=== PATIENT | male | born 1980 | race Caucasian/White ===

== ENCOUNTER 2017-09-13 13:47 | Emergency (ER) | payer BC ==
[2017-09-13 17:29] LABS: BASO % 0.5 % (0.0-1.0); EOS # 0.2 10^3/uL (0.0-0.50); HEMATOCRIT 48.4 % (42.0-52.0); HEMOGLOBIN 16.5 g/dl (13.5-17.5); IMMATURE GRANULOCYTE % 0.5 % (0-3.0); LYMPH # 2.3 10^3/uL (1.5-4.5); LYMPH % 27.7 % (24.0-44.0); MEAN CORPUSCULAR HEMOGLOBIN 29.3 pg (27.0-33.0); MEAN CORPUSCULAR HGB CONC 34.1 g/dl (32.0-36.5); MEAN CORPUSCULAR VOLUME 85.8 fl (80.0-96.0); MONO # 0.5 10^3/uL (0.0-0.8); MONO % 6.5 % (0.0-5.0); NEUTROPHILS # 5.2 10^3/uL (1.8-7.7); NEUTROPHILS % 62.8 % (36.0-66.0); PLATELET COUNT, AUTOMATED 296 10^3/uL (150-450); RED BLOOD COUNT 5.64 10^6/uL (4.30-6.10); RED CELL DISTRIBUTION WIDTH 12.2 % (11.5-14.5); WHITE BLOOD COUNT 8.2 10^3/uL (4.0-10.0)
[2017-09-13 17:55] LABS: ALBUMIN 4.3 GM/DL (3.2-5.2); ALKALINE PHOSPHATASE 103 U/L (45-117); ALT/SGPT 46 U/L (12-78); ANION GAP 4 MEQ/L (8-16); AST/SGOT 21 U/L (7-37); BILIRUBIN,TOTAL 0.3 MG/DL (0.2-1.0); BLOOD UREA NITROGEN 17 MG/DL (7-18); CALCIUM LEVEL 8.9 MG/DL (8.5-10.1); CARBON DIOXIDE LEVEL 29 MEQ/L (21-32); CHLORIDE LEVEL 107 MEQ/L (98-107); GLOMERULAR FILTRATION RATE > 60.0 (>60); GLUCOSE, FASTING 96 MG/DL (70-100); POTASSIUM SERUM 4.6 MEQ/L (3.5-5.1); SODIUM LEVEL 140 MEQ/L (136-145); TOTAL PROTEIN 8.2 GM/DL (6.4-8.2)
[2017-09-13 18:17] LABS: APPEARANCE, URINE CLEAR (CLEAR); BILIRUBIN, URINE AUTO NEGATIVE (NEGATIVE); BLOOD, URINE BLOOD NEGATIVE (NEGATIVE); COLOR, URINE YELLOW (YELLOW); GLUCOSE, URINE (UA) AUTO NEGATIVE (NEGATIVE); KETONE, URINE AUTO NEGATIVE (NEGATIVE); LEUKOCYTE ESTERASE, URINE AUTO NEGATIVE (NEGATIVE); NITRITE, URINE AUTO NEGATIVE (NEGATIVE); PROTEIN, URINE AUTO NEGATIVE (NEGATIVE); RBC, URINE AUTO 1 /HPF (0-3); SPECIFIC GRAVITY URINE AUTO 1.023 (1.002-1.035); UROBILINOGEN, URINE AUTO 0.2 mg/dL (0.0-2.0); WBC, URINE AUTO 0 /HPF (0-3)
== END 2017-09-13 18:56 | disposition home or self-care (01) ==
LOC: M ED 13:47
DX: R10.31 Right lower quadrant pain (principal); N50.811 Right testicular pain; M54.5 Low back pain; I10 Essential (primary) hypertension; R00.2 Palpitations; Z88.8 Allergy status to other drugs, medicaments and biological substances
CPT/HCPCS: 74018

== ENCOUNTER → 2019-05-05 | Outpatient (CLI) | payer OTHER ==
[2019-05-05 11:04] LABS: ALBUMIN 3.8 GM/DL (3.2-5.2); ALT/SGPT 43 U/L (12-78); BILIRUBIN,TOTAL 0.7 MG/DL (0.2-1.0); BLOOD UREA NITROGEN 16 MG/DL (7-18); CALCIUM LEVEL 9.1 MG/DL (8.5-10.1); CARBON DIOXIDE LEVEL 31 MEQ/L (21-32); CHLORIDE LEVEL 101 MEQ/L (98-107); CHOLESTEROL LEVEL 244 MG/DL (<200); CHOLESTEROL RISK RATIO 6.256 (<5); CREATININE FOR GFR 0.91 MG/DL (0.70-1.30); GLOMERULAR FILTRATION RATE > 60.0 (>60); GLUCOSE, FASTING 93 MG/DL (70-100); HDL CHOLESTEROL 39 MG/DL (>40); NON-HDL-C 205 MG/DL; POTASSIUM SERUM 4.2 MEQ/L (3.5-5.1); SODIUM LEVEL 140 MEQ/L (136-145); TOTAL PROTEIN 7.4 GM/DL (6.4-8.2); TRIGLYCERIDES LEVEL 560 MG/DL (<150)
== END ==
LOC: M WUC 08:48
PROVIDERS: ATTEND Family Medicine
DX: E78.5 Hyperlipidemia, unspecified (principal); I10 Essential (primary) hypertension

== ENCOUNTER 2019-06-30 04:36 | Emergency (ER) | payer OTHER ==
[~2019-06-30] VITALS: Ht 175.3 cm; Wt 84.1 kg
[2019-06-30 05:24] LABS: ABG pH (ARTERIAL) 7.422 UNITS (7.350-7.450)
[2019-06-30 05:25] LABS: ABG BASE EXCESS -0.4 (-2.0-2.0); ABG HCO3 23.7 MEQ/L (22.0-26.0); ABG O2 SATURATION 99.3 % (95.0-99.0); ABG PARTIAL PRESSURE CO2 37.2 mmHg (35.0-45.0); ABG PARTIAL PRESSURE O2 180.1 mmHg (75.0-100.0); ABG STANDARD HCO3 24.2 MEQ/L (22.0-26.0); ABG TOTAL CO2 24.8 MEQ/L (22.0-29.0)
[2019-06-30 05:37] LABS: BASO % 0.6 % (0.0-1.0); EOS # 0.2 10^3/uL (0.0-0.5); EOS % 2.6 % (0.0-3.0); HEMATOCRIT 44.9 % (42.0-52.0); HEMOGLOBIN 14.9 g/dl (13.5-17.5); LYMPH # 2.8 10^3/uL (1.5-5.0); LYMPH % 38.3 % (24.0-44.0); MEAN CORPUSCULAR HEMOGLOBIN 28.3 pg (27.0-33.0); MEAN CORPUSCULAR HGB CONC 33.2 g/dl (32.0-36.5); MEAN CORPUSCULAR VOLUME 85.4 fl (80.0-96.0); MONO # 0.5 10^3/uL (0.0-0.8); MONO % 6.9 % (0.0-5.0); NEUTROPHILS # 3.7 10^3/uL (1.5-8.5); NEUTROPHILS % 51.3 % (36.0-66.0); PLATELET COUNT, AUTOMATED 273 10^3/uL (150-450); RED BLOOD COUNT 5.26 10^6/uL (4.30-6.10); WHITE BLOOD COUNT 7.2 10^3/uL (4.0-10.0)
[2019-06-30 05:48] LABS: INR 0.97; PROTHROMBIN TIME 12.6 SECONDS (11.8-14.0)
[2019-06-30 05:49] LABS: PARTIAL THROMBOPLASTIN TIME 34.6 SECONDS (25.0-38.4)
[2019-06-30 06:38] LABS: BLOOD UREA NITROGEN 23 MG/DL (7-18); CALCIUM LEVEL 9.2 MG/DL (8.5-10.1); CARBON DIOXIDE LEVEL 26 MEQ/L (21-32); CHLORIDE LEVEL 104 MEQ/L (98-107); CK-MB VALUE MASS 1.2 NG/ML (<3.6); CPK CREATINE PHOSPHOKINASE 120 U/L (39-308); CREATININE FOR GFR 0.92 MG/DL (0.70-1.30); GLOMERULAR FILTRATION RATE > 60.0 (>60); GLUCOSE, FASTING 89 MG/DL (70-100); POTASSIUM SERUM 3.9 MEQ/L (3.5-5.1); SODIUM LEVEL 138 MEQ/L (136-145); TROPONIN I < 0.02 NG/ML (< 0.10)
[2019-06-30 06:56] VITALS: BP 138/78
--- NOTE | 2019-06-30 07:22 | REP ---
Clinical: Chest pain and palpitations . Comparison: 10/24/2010 . Technique: PA and lateral. Findings: The mediastinum and cardiac silhouette are normal. The lung oliver are clear and without acute consolidation, effusion, or pneumothorax. The skeletal structures are intact and normal. Impression: 1. No acute cardiopulmonary process. Electronically Signed by Cade Rodriguez MD 06/30/2019 07:13 A
--- NOTE | 2019-06-30 19:45 | ECGEPIP ---
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
== END 2019-06-30 06:58 | disposition home or self-care (01) ==
LOC: M ED 04:36
DX: R00.2 Palpitations (principal); R94.31 Abnormal electrocardiogram [ECG] [EKG]; I10 Essential (primary) hypertension; Z88.5 Allergy status to narcotic agent; Z88.6 Allergy status to analgesic agent

== ENCOUNTER 2020-02-15 09:04 | Emergency (ER) | payer OTHER ==
[~2020-02-15] VITALS: Ht 175.3 cm; Wt 89.3 kg
[2020-02-15 09:53] LABS: BASO # 0.1 10^3/uL (0.0-0.2); EOS # 0.2 10^3/uL (0.0-0.5); EOS % 4.4 % (0.0-3.0); HEMATOCRIT 46.7 % (42.0-52.0); HEMOGLOBIN 15.8 g/dl (13.5-17.5); LYMPH # 2.1 10^3/uL (1.5-5.0); LYMPH % 42.3 % (24.0-44.0); MEAN CORPUSCULAR HEMOGLOBIN 28.7 pg (27.0-33.0); MEAN CORPUSCULAR HGB CONC 33.8 g/dl (32.0-36.5); MEAN CORPUSCULAR VOLUME 84.9 fl (80.0-96.0); MONO # 0.3 10^3/uL (0.0-0.8); MONO % 6.9 % (0.0-5.0); NEUTROPHILS # 2.2 10^3/uL (1.5-8.5); PLATELET COUNT, AUTOMATED 254 10^3/uL (150-450)
[2020-02-15 10:33] LABS: BLOOD UREA NITROGEN 18 MG/DL (7-18); CALCIUM LEVEL 9.1 MG/DL (8.5-10.1); CARBON DIOXIDE LEVEL 28 MEQ/L (21-32); CHLORIDE LEVEL 106 MEQ/L (98-107); CK-MB VALUE MASS < 1.0 NG/ML (<3.6); CPK CREATINE PHOSPHOKINASE 75 U/L (39-308); CREATININE FOR GFR 0.95 MG/DL (0.70-1.30); GLOMERULAR FILTRATION RATE > 60.0 (>60); GLUCOSE, FASTING 95 MG/DL (70-100); MAGNESIUM LEVEL 2.2 MG/DL (1.8-2.4); MB/CK RELATIVE INDEX 1.33 (< OR =4); POTASSIUM SERUM 4.4 MEQ/L (3.5-5.1); SODIUM LEVEL 141 MEQ/L (136-145); TROPONIN I < 0.02 NG/ML (< 0.10)
[2020-02-15 11:29] VITALS: BP 134/86
--- NOTE | 2020-03-04 16:32 | ECGEPIP ---
SINUS BRADYCARDIA WITH SINUS ARRHYTHMIA SEE SCANNED DOWNTIME REPORT MTDD
--- NOTE | 2020-03-12 15:03 | REP ---
PORTABLE CHEST X-RAY CLINICAL: Chest pain. COMPARISON: 06/30/2009. FINDINGS: Mediastinum and cardiac silhouette normal. Lung oliver clear. No acute consolidation, effusion, or pneumothorax. Skeletal structures are intact. IMPRESSION: No acute cardiopulmonary process. MTDD
== END 2020-02-15 11:30 | disposition home or self-care (01) ==
LOC: M ED 09:04
DX: I49.1 Atrial premature depolarization (principal); I10 Essential (primary) hypertension; Z88.6 Allergy status to analgesic agent; Z88.8 Allergy status to other drugs, medicaments and biological substances

== ENCOUNTER 2020-05-15 06:06 | Emergency (ER) | payer OTHER ==
[~2020-05-15] VITALS: Ht 175.3 cm; Wt 90.7 kg
[2020-05-15] MEDS ORDERED: PEPT262T2 PO (06:18)
[2020-05-15] MEDS ORDERED: NS 1,000 ML IV ONE (07:00)
[2020-05-15 07:04] LABS: BASO # 0.1 10^3/uL (0.0-0.2); BASO % 0.9 % (0.0-1.0); EOS # 0.2 10^3/uL (0.0-0.5); EOS % 3.2 % (0.0-3.0); HEMATOCRIT 47.2 % (42.0-52.0); HEMOGLOBIN 15.9 g/dl (13.5-17.5); LYMPH # 2.2 10^3/uL (1.5-5.0); LYMPH % 40.9 % (24.0-44.0); MEAN CORPUSCULAR HEMOGLOBIN 28.9 pg (27.0-33.0); MEAN CORPUSCULAR HGB CONC 33.7 g/dl (32.0-36.5); MEAN CORPUSCULAR VOLUME 85.8 fl (80.0-96.0); MONO # 0.4 10^3/uL (0.0-0.8); NEUTROPHILS # 2.5 10^3/uL (1.5-8.5); NEUTROPHILS % 46.8 % (36.0-66.0); PLATELET COUNT, AUTOMATED 274 10^3/uL (150-450); WHITE BLOOD COUNT 5.3 10^3/uL (4.0-10.0)
[2020-05-15 07:16] LABS: ALBUMIN 3.7 GM/DL (3.2-5.2); ALT/SGPT 43 U/L (12-78); BILIRUBIN,DIRECT < 0.1 MG/DL (0.0-0.2); BILIRUBIN,TOTAL 0.5 MG/DL (0.2-1.0); BLOOD UREA NITROGEN 17 MG/DL (7-18); CALCIUM LEVEL 9.4 MG/DL (8.5-10.1); CARBON DIOXIDE LEVEL 26 MEQ/L (21-32); CHLORIDE LEVEL 106 MEQ/L (98-107); CK-MB VALUE MASS < 1.0 NG/ML (<3.6); CPK CREATINE PHOSPHOKINASE 140 U/L (39-308); CREATININE FOR GFR 0.89 MG/DL (0.70-1.30); FREE T4 0.97 NG/DL (0.76-1.46); GLOMERULAR FILTRATION RATE > 60.0 (>60); GLUCOSE, FASTING 93 MG/DL (70-100); INR 0.87; LIPASE 156 U/L (73-393); MB/CK RELATIVE INDEX 0.71 (< OR =4); POTASSIUM SERUM 4.6 MEQ/L (3.5-5.1); SODIUM LEVEL 137 MEQ/L (136-145); TOTAL PROTEIN 7.3 GM/DL (6.4-8.2); TROPONIN I < 0.02 NG/ML (< 0.10)
[2020-05-15 07:17] LABS: PARTIAL THROMBOPLASTIN TIME 33.9 SECONDS (24.2-38.5)
--- NOTE | 2020-05-15 07:28 | REP ---
INDICATION: CHEST PAIN COMPARISON: 06/20/2019 TECHNIQUE: PA and lateral. FINDINGS: The mediastinum and cardiac silhouette are normal. The lung oliver are clear and without acute consolidation, effusion, or pneumothorax. The skeletal structures are intact and normal. IMPRESSION: No acute cardiopulmonary process. <Electronically signed by Cade Rodriguez > 05/15/20 0789
--- NOTE | 2020-05-15 07:46 | ECGEPIP ---
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
[2020-05-15 07:51] LABS: ERYTHROCYTE SEDIMENTATION RATE 1 mm/hr (0-15)
[2020-05-15] MEDS ORDERED: holter monitor (07:58)
[2020-05-15 09:25] VITALS: BP 150/102
== END 2020-05-15 09:27 | disposition home or self-care (01) ==
LOC: M ED 06:06
DX: R07.9 Chest pain, unspecified (principal); R00.2 Palpitations; R94.31 Abnormal electrocardiogram [ECG] [EKG]; I10 Essential (primary) hypertension; K21.9 Gastro-esophageal reflux disease without esophagitis; F17.220 Nicotine dependence, chewing tobacco, uncomplicated; Z88.8 Allergy status to other drugs, medicaments and biological substances

== ENCOUNTER 2020-11-29 03:33 | Emergency (ER) | payer OTHER ==
[~2020-11-29] VITALS: Ht 175.3 cm; Wt 88.5 kg
[~2020-11-29 03:33] MED LIST: PEPT262T2 PO; holter monitor
[2020-11-29] MEDS ORDERED: TUMS500C PO (03:43)
[2020-11-29 04:34] LABS: BASO % 0.7 % (0.0-1.0); EOS # 0.2 10^3/uL (0.0-0.5); EOS % 3.2 % (0.0-3.0); HEMATOCRIT 45.3 % (42.0-52.0); HEMOGLOBIN 15.4 g/dl (13.5-17.5); LYMPH # 2.4 10^3/uL (1.5-5.0); LYMPH % 43.1 % (24.0-44.0); MEAN CORPUSCULAR HEMOGLOBIN 28.9 pg (27.0-33.0); MONO # 0.4 10^3/uL (0.0-0.8); MONO % 7.5 % (2.0-8.0); NEUTROPHILS # 2.5 10^3/uL (1.5-8.5); NEUTROPHILS % 45.3 % (36.0-66.0); PLATELET COUNT, AUTOMATED 264 10^3/uL (150-450); RED BLOOD COUNT 5.33 10^6/uL (4.30-6.10); WHITE BLOOD COUNT 5.6 10^3/uL (4.0-10.0)
[2020-11-29 05:17] LABS: BLOOD UREA NITROGEN 17 MG/DL (7-18); CALCIUM LEVEL 9.2 MG/DL (8.5-10.1); CARBON DIOXIDE LEVEL 25 MEQ/L (21-32); CHLORIDE LEVEL 106 MEQ/L (98-107); CK-MB VALUE MASS < 1.0 NG/ML (<3.6); CPK CREATINE PHOSPHOKINASE 187 U/L (39-308); CREATININE FOR GFR 0.85 MG/DL (0.70-1.30); GLOMERULAR FILTRATION RATE > 60.0 (>60); GLUCOSE, FASTING 93 MG/DL (70-100); MB/CK RELATIVE INDEX 0.53 (< OR =4); POTASSIUM SERUM 4.6 MEQ/L (3.5-5.1); SODIUM LEVEL 139 MEQ/L (136-145); TROPONIN I < 0.02 NG/ML (< 0.10)
--- NOTE | 2020-11-29 05:20 | REPVR ---
PROCEDURE INFORMATION: Exam: XR Chest Exam date and time: 11/29/2020 4:13 AM Age: 40 years old Clinical indication: Pain; Other: Not specified; Additional info: Chest pain TECHNIQUE: Imaging protocol: XR of the chest. Views: 1 view. COMPARISON: CR Chest, 2 view PA, Lat 05/15/2020 7:12 AM FINDINGS: Lungs: Unremarkable. No consolidation. Pleural spaces: Unremarkable. No pleural effusion. No pneumothorax. Heart/Mediastinum: Unremarkable. No cardiomegaly. Bones/joints: Unremarkable. IMPRESSION: No acute findings. Electronically signed by: Warner Neal On 11/29/2020 05:20:00 AM
[2020-11-29] MEDS ORDERED: GI COCKTAIL 50ML BTL(HYOSCYAMINE/MAALOX/LIDOCAINE VISCOUS)(1:3:1) PO ONE (06:15)
[2020-11-29 07:02] LABS: ALBUMIN 3.8 GM/DL (3.2-5.2); ALT/SGPT 37 U/L (12-78); BILIRUBIN,DIRECT < 0.1 MG/DL (0.0-0.2); BILIRUBIN,TOTAL 0.5 MG/DL (0.2-1.0); LIPASE 107 U/L (73-393); TOTAL PROTEIN 7.4 GM/DL (6.4-8.2)
[2020-11-29 07:28] VITALS: BP 112/65
--- NOTE | 2020-11-29 17:00 | ECGEPIP ---
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
== END 2020-11-29 07:30 | disposition home or self-care (01) ==
LOC: M ED 03:33
DX: K21.9 Gastro-esophageal reflux disease without esophagitis (principal); R00.1 Bradycardia, unspecified; M54.5 Low back pain; R51.9 Headache, unspecified; Z88.6 Allergy status to analgesic agent; Z79.899 Other long term (current) drug therapy

== ENCOUNTER → 2021-04-10 | Outpatient (REF) | payer OTHER ==
[~2021-04-10] MED LIST changes: +TUMS500C PO
== END ==
LOC: M WUC 17:52
PROVIDERS: ATTEND Physician Assistant
DX: L03.116 Cellulitis of left lower limb (principal)

== ENCOUNTER 2021-04-11 07:42 | Emergency (ER) | payer OTHER ==
[~2021-04-11] VITALS: Ht 175.3 cm; Wt 86.8 kg
[2021-04-11 07:43] VITALS: BP 165/96
--- OUTSIDE RECORDS SUMMARY | 2021-04-11 07:48 | CCD | Continuity of Care Document ---
Author Author Judd MICHELLE Organization Unknown Address [address] [place] [address] [place] [address] Phone [phone] Care Team Providers Care Compositor Apprentice Name Role Phone [facility] Problems Description No Information Available Social History Type Date Description Comments Sex Unknown ETOH Use Rarely consumes alcohol Tobacco Use Start: Unknown The patient has never vaped Tobacco Use Start: Unknown Patient has never smoked Smoking Status Reviewed: 04/10/21 Patient has never smoked Allergies and adverse reactions Active Allergies Criticality Reaction | Severity Comments Date Demerol Unable to assess criticality 04/10/2021 Medications Active Medications SIG Qnty Indications Ordering Provide r Date Cefadroxil 500mg Capsules 2 capsules by mouth every 12 hours for 7 days 28caps L03.116 Eugenio mazariegos JR., M.D. 04/10/2021 History Medications No Active Medications Unknown - 04/10/2021 Immunizations Description No Information Available Vital Signs Date Vital Result Comment 04/10/2021 10:19am BP Systolic 131 mmHg BP Diastolic 87 mmHg Heart Rate 73 /min Respiratory Rate 16 /min O2 % BldC Oximetry 96 % Body Temperature 98.0 F Weight 186.00 lb Height 69 inches 5'9" BMI (Body Mass Index) 27.5 kg/m2 Pain Level 6 Results Description No Information Available Procedures Date Code Description Status 04/10/2021 29244 Office/Outpatient New Low [facility] 30 -44 Minutes Completed Medical Devices Description No Information Available Encounters Type Date Location Provider Dx Diagnosis Office Visit 04/10/2021 8:40a Main Office Carley Abel L0 3.116 Cellulitis of left lower limb Assessments Date Code Description Provider 04/10/2021 L03.116 Cellulitis of left lower limb Carley Garcia Plan of Treatment 04/10/2021 - Haresh Abel.* L03.116 Cellulitis of left lower limb* New Medication:* Cefadroxil 500 mg - 2 capsules by mouth every 12 hours for 7 days * Comments:* Minimal amount of bloody, slightly purulent material expressed with deep palpation which was culturedWill cover with antibioticsMonitorCulture sent, will call if changes to antibiotics are neededRecommend follow up with PCP to discuss other areas that look cystic and chronic. May want general surgery referral if he wants them removedI&D not performed today as this is not fluctuant and quite firm. More cellulitis than abscess at this point. Functional Status Description No Information Available Mental Status Description No Information Available Referrals Description No Information Available
--- OUTSIDE RECORDS SUMMARY | 2021-04-11 07:48 | CCD ---
Author Author [facility] Organization [facility] Address Unknown Phone Unavailable Care Team Providers Care Admin Prog Coord Name Role Phone Charkolebojerson, A Nichelle RPA C Unavailable Unavailable Charlebois, A Nichelle RPA C Unavailable Unavailable Charlebois, A Nichelle RPA C Unavailable Unavailable Charlebois, A Nichelle RPA C Unavailable Unavailable Charlebois, A Nichelle RPA C Unavailable Unavailable Charlebois, A Nichelle RPA C Unavailable Unavailable Charlebois, A Nichelle RPA C Unavailable Unavailable Charlebois, A Nichelle RPA C Unavailable Unavailable Charlebois, A Nichelle RPA C Unavailable Unavailable Charlebois, A Nichelle RPA C Unavailable Unavailable Charlebois, A Nichelle RPA C Unavailable Unavailable Charlebois, A Nichelle RPA C Unavailable Unavailable Charlebois, A Nichelle RPA C Unavailable Unavailable Charlebois, A Nichelle RPA C Unavailable Unavailable Charlebois, A Nichelle RPA C Unavailable Unavailable Charlebois, A Nichelle RPA C Unavailable Unavailable Charlebois, A Nichelle RPA C Unavailable Unavailable Charlebois, A Nichelle RPA C Unavailable Unavailable Charlebois, A Nichelle RPA C Unavailable Unavailable Charlebois, A Nichelle RPA C Unavailable Unavailable Charlebois, A Nichelle RPA C Unavailable Unavailable Charlebois, A Nichelle RPA C Unavailable Unavailable Charlebois, A Nichelle RPA C Unavailable Unavailable Charlebois, A Nichelle RPA C Unavailable Unavailable Charlebois, A Nichelle RPA C Unavailable Unavailable Charlebois, A Nichelle RPA C Unavailable Unavailable Charlebois, A Nichelle RPA C Unavailable Unavailable Charlebois, A Nichelle RPA C Unavailable Unavailable Charlebois, A Nichelle RPA C Unavailable Unavailable Charlebois, A Nichelle RPA C Unavailable Unavailable Charlebois, A Nichelle RPA C Unavailable Unavailable Charlebois, A Nichelle RPA C Unavailable Unavailable Charlebois, A Nichelle RPA C Unavailable Unavailable Donte STOVER MD Unavailable Unavailable Donte STOVER MD Unavailable Unavailable Donte STOVER MD Unavailable Unavailable Donte STOVER MD Unavailable Unavailable Donte STOVER MD Unavailable Unavailable Donte STOVER MD Unavailable Unavailable Donte STOVER MD Unavailable Unavailable Donte STOVER MD Unavailable Unavailable Donte STOVER MD Unavailable Unavailable Donte STOVER MD Unavailable Unavailable Donte STOVER MD Unavailable Unavailable Donte STOVER MD Unavailable Unavailable Donte STOVER MD Unavailable Unavailable Donte STOVER MD Unavailable Unavailable Donte STOVER MD Unavailable Unavailable Donte STOVER MD Unavailable Unavailable Donte STOVER MD Unavailable Unavailable Donte STOVER MD Unavailable Unavailable Donte STOVER MD Unavailable Unavailable Donte STOVER MD Unavailable Unavailable Donte STOVER MD Unavailable Unavailable Donte STOVER MD Unavailable Unavailable Donte STOVER MD Unavailable Unavailable Donte STOVER MD Unavailable Unavailable Donte STOVER MD Unavailable Unavailable Donte STOVER MD Unavailable Unavailable Donte STOVER MD Unavailable Unavailable Donte STOVER MD Unavailable Unavailable Donte STOVER MD Unavailable Unavailable Donte STOVER MD Unavailable Unavailable Donte STOVER MD Unavailable Unavailable Donte STOVER MD Unavailable Unavailable Donte STOVER MD Unavailable Unavailable Donte STOVER MD Unavailable Unavailable Donte STOVER MD Unavailable Unavailable Donte STOVER MD Unavailable Unavailable Donte STOVER MD Unavailable Unavailable Donte STOVER MD Unavailable Unavailable Donte STOVER MD Unavailable Unavailable Donte STOVER MD Unavailable Unavailable Donte STOVER MD Unavailable Unavailable Donte STOVER MD Unavailable Unavailable Donte STOVER MD Unavailable Unavailable Donte STOVER MD Unavailable Unavailable Donte STOVER MD Unavailable Unavailable Donte STOVER MD Unavailable Unavailable Donte STOVER MD Unavailable Unavailable Donte STOVER MD Unavailable Unavailable Donte STOVER MD Unavailable Unavailable Donte STOVER MD Unavailable Unavailable Donte STOVER MD Unavailable Unavailable CK H DASH TANG Unavailable Unavailable CK H DASH TANG Unavailable Unavailable Donte STOVER MD Unavailable Unavailable CK H DASH MD Unavailable Unavailable CK H DASH MD Unavailable Unavailable Donte STOVER MD Unavailable Unavailable CK H DASH TANG Unavailable Unavailable Donte STOVER MD Unavailable Unavailable Donte STOVER MD Unavailable Unavailable CK H DASH MD Unavailable Unavailable CK H DASH MD Unavailable Unavailable CK H DASH MD Unavailable Unavailable CK H DASH MD Unavailable Unavailable Donte STOVER MD Unavailable Unavailable Donte STOVER MD Unavailable Unavailable Donte STOVER MD Unavailable Unavailable Donte STOVER MD Unavailable Unavailable Donte STOVER MD Unavailable Unavailable Donte STOVER MD Unavailable Unavailable Donte STOVER MD Unavailable Unavailable Donte STOVER MD Unavailable Unavailable Donte STOVER MD Unavailable Unavailable Donte STOVER MD Unavailable Unavailable Donte STOVER MD Unavailable Unavailable Donte STOVER MD Unavailable Unavailable MIGUEL ANGEL, CONCEPCION PA Unavailable Unavailable MIGUEL ANGEL, CONCEPCION PA Unavailable Unavailable MIGUEL ANGEL, CONCEPCION PA Unavailable Unavailable MIGUEL ANGEL, CONCEPCOIN PA Unavailable Unavailable MIGUEL ANGEL, CONCEPCION PA Unavailable Unavailable MIGUEL ANGEL, CONCEPCION PA Unavailable Unavailable MIGUEL AGNEL, CONCEPCION PA Unavailable Unavailable MIGUEL ANGEL, CONCEPCION PA Unavailable Unavailable MIGUEL ANGEL, CONCEPCION PA Unavailable Unavailable MIGUEL ANGEL, CONCEPCION PA Unavailable Unavailable MIGUEL ANGEL, CONCEPCION PA Unavailable Unavailable MIGUEL ANGEL, CONCEPCION PA Unavailable Unavailable MIGUEL ANGEL, CONCEPCION PA Unavailable Unavailable MIGUEL ANGEL, CONCEPCION PA Unavailable Unavailable MIGUEL ANGEL, CONCEPCION PA Unavailable Unavailable MIGUEL ANGEL, CONCEPCION PA Unavailable Unavailable MIGUEL ANGEL, CONCEPCION PA Unavailable Unavailable MIGUEL ANGEL, CONCEPCION PA Unavailable Unavailable MIGUEL ANGEL, CONCEPCION PA Unavailable Unavailable MIGUEL ANGEL, CONCEPCION PA Unavailable Unavailable MIGUEL ANGEL, CONCEPCION PA Unavailable Unavailable MIGUEL ANGEL, CONCEPCION PA Unavailable Unavailable MIGUEL ANGEL, CONCEPCION PA Unavailable Unavailable MIGUEL ANGEL, CONCEPCION PA Unavailable Unavailable MIGUEL ANGEL, CONCEPCION PA Unavailable Unavailable MIGUEL ANGEL, CONCEPCION PA Unavailable Unavailable MIGUEL ANGEL, CONCEPCION PA Unavailable Unavailable MIGUEL ANGEL, CONCEPCION PA Unavailable Unavailable MIGUEL ANGEL, CONCEPCION PA Unavailable Unavailable MIGUEL ANGEL, CONCEPCION PA Unavailable Unavailable MIGUEL ANGEL, CONCEPCION PA Unavailable Unavailable MIGUEL ANGEL, CONCEPCION PA Unavailable Unavailable MIGUEL ANGEL, CONCEPCION PA Unavailable Unavailable MIGUEL ANGEL, CONCEPCION PA Unavailable Unavailable MIGUEL ANGEL, CONCEPCION PA Unavailable Unavailable MIGUEL ANGEL, CONCEPCION PA Unavailable Unavailable [place], N Evaristo TIN TIE MACHINE OPERATOR AUTOMATIC Unavailable Unavailable [place], N Evaristo TIN TIE MACHINE OPERATOR AUTOMATIC Unavailable Unavailable [place], N Evaristo TIN TIE MACHINE OPERATOR AUTOMATIC Unavailable Unavailable [place], N Evaristo TIN TIE MACHINE OPERATOR AUTOMATIC Unavailable Unavailable [place], N Evaristo TIN TIE MACHINE OPERATOR AUTOMATIC Unavailable Unavailable [place], N Evaristo TIN TIE MACHINE OPERATOR AUTOMATIC Unavailable Unavailable [place], N Evaristo TIN TIE MACHINE OPERATOR AUTOMATIC Unavailable Unavailable [place], N Evaristo TIN TIE MACHINE OPERATOR AUTOMATIC Unavailable Unavailable [place], N Evaristo TIN TIE MACHINE OPERATOR AUTOMATIC Unavailable Unavailable [place], N Evaristo TIN TIE MACHINE OPERATOR AUTOMATIC Unavailable Unavailable [place], N Evaristo TIN TIE MACHINE OPERATOR AUTOMATIC Unavailable Unavailable [place], N Evaristo TIN TIE MACHINE OPERATOR AUTOMATIC Unavailable Unavailable [place], N Evaristo TIN TIE MACHINE OPERATOR AUTOMATIC Unavailable Unavailable [place], N Evaristo TIN TIE MACHINE OPERATOR AUTOMATIC Unavailable Unavailable [place], N Evaristo TIN TIE MACHINE OPERATOR AUTOMATIC Unavailable Unavailable [place], N Evaristo TIN TIE MACHINE OPERATOR AUTOMATIC Unavailable Unavailable [place], N Evaristo TIN TIE MACHINE OPERATOR AUTOMATIC Unavailable Unavailable [place], N Evaristo TIN TIE MACHINE OPERATOR AUTOMATIC Unavailable Unavailable [place], N Evaristo TIN TIE MACHINE OPERATOR AUTOMATIC Unavailable Unavailable [place], N Evaristo TIN TIE MACHINE OPERATOR AUTOMATIC Unavailable Unavailable [place], N Evaristo TIN TIE MACHINE OPERATOR AUTOMATIC Unavailable Unavailable [place], N Evaristo TIN TIE MACHINE OPERATOR AUTOMATIC Unavailable Unavailable [place], N Evaristo TIN TIE MACHINE OPERATOR AUTOMATIC Unavailable Unavailable [place], N Evaristo TIN TIE MACHINE OPERATOR AUTOMATIC Unavailable Unavailable [place], N Evaristo TIN TIE MACHINE OPERATOR AUTOMATIC Unavailable Unavailable [place], N Evaristo TIN TIE MACHINE OPERATOR AUTOMATIC Unavailable Unavailable [place], N Evaristo TIN TIE MACHINE OPERATOR AUTOMATIC Unavailable Unavailable [place], N Evaristo TIN TIE MACHINE OPERATOR AUTOMATIC Unavailable Unavailable [place], N Evaristo TIN TIE MACHINE OPERATOR AUTOMATIC Unavailable Unavailable [place], N Evaristo TIN TIE MACHINE OPERATOR AUTOMATIC Unavailable Unavailable [place], N Evaristo TIN TIE MACHINE OPERATOR AUTOMATIC Unavailable Unavailable [place], N Evaristo TIN TIE MACHINE OPERATOR AUTOMATIC Unavailable Unavailable [place], N Evaritso TIN TIE MACHINE OPERATOR AUTOMATIC Unavailable Unavailable Denice Gray MD Unavailable Unavailable Denice Gray MD Unavailable Unavailable Denice Gray MD Unavailable Unavailable Denice Gray MD Unavailable Unavailable Denice Gray MD Unavailable Unavailable Denice Gray MD Unavailable Unavailable Denice Gray MD Unavailable Unavailable Denice Gray MD Unavailable Unavailable Denice Gray MD Unavailable Unavailable Denice Gray MD Unavailable Unavailable Denice Gray MD Unavailable Unavailable Denice Gray MD Unavailable Unavailable Denice Gray MD Unavailable Unavailable Denice Gray MD Unavailable Unavailable Denice Gray MD Unavailable Unavailable SlezkaMikaelatech Unavailable Unavailable SlezkaSukhwinderjtech Unavailable Unavailable Slezka Vojtech Unavailable Unavailable SlezkaSukhwinderjtech Unavailable Unavailable SlezkaSukhwinderjtech Unavailable Unavailable SlezkaSukhwinderjtech Unavailable Unavailable SlezkaSukhwinderjtech Unavailable Unavailable SlezkaSukhwinderjtech Unavailable Unavailable SlezkaSukhwinderjtech Unavailable Unavailable SlezkaSukhwinderjtech Unavailable Unavailable SlezkaSukhwinderjtech Unavailable Unavailable SlezkaSukhwinderjtech Unavailable Unavailable SlezkaSukhwinderjtech Unavailable Unavailable SlezkaSukhwinderjtech Unavailable Unavailable SlezkaSukhwinderjtech Unavailable Unavailable SlezkaSukhwinderjtech Unavailable Unavailable SlezkaSukhwinderjtech Unavailable Unavailable SlezkaSukhwinderjtech Unavailable Unavailable SlezkaSukhwinderjtech Unavailable Unavailable SlezkaSukhwinderjtech Unavailable Unavailable SlezkaSukhwinderjtech Unavailable Unavailable SlezkaSukhwinderjtech Unavailable Unavailable SlezkaSukhwinderjtech Unavailable Unavailable SlezkaSukhwinderjtech Unavailable Unavailable SlezkaSukhwinderjtech Unavailable Unavailable SlezkaSukhwinderjtech Unavailable Unavailable SlezkaSukhwinderjtech Unavailable Unavailable SlezkaSukhwinderjtech Unavailable Unavailable SlezkaSukhwinderjtech Unavailable Unavailable SlezkaSukhwinderjtech Unavailable Unavailable SlezkaSukhwinderjtech Unavailable Unavailable SlezkaSukhwinderjtech Unavailable Unavailable SlezkaSukhwinderjtech Unavailable Unavailable SlezkaSukhwinderjtech Unavailable Unavailable SlezkaSukhwinderjtech Unavailable Unavailable SlezkaSukhwinderjtech Unavailable Unavailable SlezkaMikaelatech Unavailable Unavailable SlezkaSukhwinderjtech Unavailable Unavailable SlezkaSukhwinderjtech Unavailable Unavailable SlezkaSukhwinderjtech Unavailable Unavailable SlezkaSukhwinderjtech Unavailable Unavailable SlezkaSukhwinderjtech Unavailable Unavailable SlezkaSukhwinderjtech Unavailable Unavailable Re-disclosure Warning The records that you are about to access may contain information from federally-assisted alcohol or drug abuse programs. If such information is present, then the following federally mandated warning applies: This information has been disclosed to you from records protected by federal confidentiality rules (42 CFR part 2). The federal rules prohibit you from making any further disclosure of this information unless further disclosure is expressly permitted by the written consent of the person to whom it pertains or as otherwise permitted by 42 CFR part 2. A general authorization for the release of medical or other information is NOT sufficient for this purpose. The Federal rules restrict any use of the information to criminally investigate or prosecute any alcohol or drug abuse patient.The records that you are about to access may contain highly sensitive health information, the redisclosure of which is protected by Article 27-F of the [facility] Public Health law. If you continue you may have access to information: Regarding HIV / AIDS; Provided by facilities licensed or operated by the [facility] Office of Mental Health; or Provided by the [facility] Office for People With Developmental Disabilities. If such information is present, then the following [facility] mandated warning applies: This information has been disclosed to you from confidential records which are protected by state law. State law prohibits you from making any further disclosure of this information without the specific written consent of the person to whom it pertains, or as otherwise permitted by law. Any unauthorized further disclosure in violation of state law may result in a fine or senior care sentence or both. A general authorization for the release of medical or other information is NOT sufficient authorization for further disc losure. Encounters Encounter Providers Location Date Indications Data Source(s ) Outpatient Attender: CONCEPCION agosto 04/10/2021 08:40:00 AM EDT [facility] ([facility]) Outpatient Attender: Nichelle Parks/Danilo/Shantel lopez/Rigo 02/02/2021 02:00:00 PM EDT [facility] ([facility] [place]) Outpatient Attender: DASH STOVER MD [facility] 09:00:00 AM EDT [facility] Outpatient АННА-JAZZY 08/14/2020 01:40:42 PM EST [facility] Outpatient Referrer: Denice [facility]TRAM 07/20 03:47:32 PM EST [facility] Outpatient Attender: Evaristo Rider NP SJP.АННА-SJP.АННА 08/10/2020 12 :00:00 AM EST [facility] Outpatient Attender: DASH STOVER MD [facility] 04/2020 07:30:00 AM EST [facility] ([facility] Medications Medication Brand Name Start Date Product Form Dose Route Admi nistrative Instructions Pharmacy Instructions Status Indications Reaction Description Data Source(s) No Active Medications 04/10/2021 12:00:00 AM EDT completed [facility] ([facility]) Cefadroxil 500 MG Oral Capsule Cefadroxil 04/10/2021 12:00:00 AM EDT ORAL active [facility] ([facility]) Insurance Providers Payer name Policy type / Coverage type Policy ID Covered republican ID Covered republican's relationship to holden Policy Holden Plan Information [facility] [id number] SP [id number] [facility] COMM[facility] PLAN [facility] [id number] SP [id number] [place] 302/[id number] SP [id number] [place] 302/307 [id number] SP [id number] [employer] B [id number] S [id number] SELF PAY UNAVAILABLE UNAVAILA BLE ONE CALL CARE MANAGEMENT O [id number] S [id number] [facility] PLAN [facility] [id number] SP [id number] ESIS P [id number] S [id number] [employer] BCBS P [id number] S [id number] BCBS [place]IRE [facility] 303/803 P [id number] S [id number] BCBS O [id number] S [id number] ESIS CLAIMS WC [id number] S [id number] BLUE CROSS BLUE SHIELD -O/P [id number] 18 [id number] [facility] O [id number] S [id number] Problems, Conditions, and Diagnoses No Information Surgeries/Procedures Procedure Description Date Indications Data Source(s) OFFICE OUTPATIENT NEW 30 MINUTES 04/10/2021 12:00:00 A M EDT [facility] ([facility]) OFFICE OUTPATIENT NEW 45 MINUTES 02/02/2021 12:00:00 A M EDT [facility] ([facility], ) OFFICE OUTPATIENT VISIT 25 MINUTES 12/01/2020 12:00:00 AM EDT [facility] ([facility] POCT AMB EKG <td>POCT AMB EKG</td><td>Rou oliver</td><td>08/10/2020 12:00 PM EST</td><td> Palpitations</td><td> </td> 08/10/2020 05:00:00 PM EST Palpitations [facility] Palpitations Results ID Date Data Source [id number] 03/30/2021 12:00:00 AM EDT [facility] Name Value Range Interpretation Code Description Data Carey rce(s) Supporting Document(s) SARS coronavirus 2 RNA Not Detected [facility] This lab was ordered by [facility] and rep orted by [facility]. ID Date Data Source [id number] 12/01/2020 09:15:00 AM EDT [facility] ([facility] Name Value Range Interpretation Code Description Data Carey rce(s) Supporting Document(s) Cholesterol [Mass/volume] in Serum or Plasma 258 mg/dL 100 -199 Above high normal [facility] ([facility] Cholesterol in HDL [Mass/volume] in Serum or Plasma 37 mg/dL Below low normal [facility] ([facility] Triglyceride [Mass/volume] in Serum or Plasma 572 mg/dL 0- 149 Above upper panic limits [facility] ([facility] ) Comment: Laboratory test result [facility] ([facility] Laboratory test finding (navigational concept) 102 mg/dL 5-40 Above high normal [facility] ([facility] Laboratory test finding (navigational concept) 119 mg/dL 0-99 Above high normal [facility] ([facility] ID Date Data Source [id number] 12/01/2020 09:15:00 AM EDT [facility] ([facility] Name Value Range Interpretation Code Description Data Carey rce(s) Supporting Document(s) Glucose [Mass/volume] in Serum or Plasma 83 mg/dL 65-99 [facility] ([facility] BUN 14 mg/dL 6-20 [facility] ([facility] Creatinine [Mass/volume] in Serum or Plasma 0.91 mg/dL 0.76-1.27 [facility] ([facility] eGFR If NonAfricn Am 107 mL/min/1.73 [facility] ([facility] eGFR If Africn Am 123 mL/min/1.73 [facility] ([facility] currently reports eGFR in comp liance with the current recommendations of the National Kidney Foundation. [facility] will update reporting as new guidelines are published from the NKF-ASN Task force. Urea nitrogen/Creatinine [Mass Ratio] in Serum or Plasma 15 9 -20 [facility] ([facility] Sodium [Moles/volume] in Serum or Plasma 139 mmol/L 134-144 [facility] ([facility] Potassium [Moles/volume] in Serum or Plasma 4.5 mmol/L 3.5-5.2 [facility] ([facility] Chloride [Moles/volume] in Serum or Plasma 102 mmol/L 96-106 [facility] ([facility] Carbon dioxide, total [Moles/volume] in Serum or Plasma 23 mmol/L 20 -29 [facility] ([facility] Protein [Mass/volume] in Serum or Plasma 7.2 g/dL 6.0-8.5 [facility] ([facility] Calcium [Mass/volume] in Serum or Plasma 9.4 mg/dL 8.7-10.2 [facility] ([facility] Albumin [Mass/volume] in Serum or Plasma 4.5 g/dL 4.0-5.0 [facility] ([facility] Globulin [Mass/volume] in Serum by calculation 2.7 g/dL 1.5-4.5 [facility] ([facility] Albumin/Globulin [Mass Ratio] in Serum or Plasma 1.7 1.2-2.2 [facility] ([facility] Bilirubin.total [Mass/volume] in Serum or Plasma 0.3 mg/dL 0.0-1.2 [facility] ([facility] Alkaline phosphatase [Enzymatic activity/volume] in Serum or Plasma 87 IU/L 48-121 [facility] Alanine aminotransferase [Enzymatic activity/volume] in Seru m or Plasma 25 IU/L 0-44 [facility] Aspartate aminotransferase [Enzymatic activity/volume] in Serum or Plasma 18 IU/L 0-40 [facility] ([facility] ID Date Data Source [id number] 08/14/2020 01:32:45 PM EST [facility] Name Value Range Interpretation Code Description Data Carey rce(s) Supporting Document(s) &PDF [facility] [id number]/KZSpeGSXvd1VzWSdtLCy[id number] vci [file] ICAgICAgICAgICAgICAgICAgICAgICAgICAgICAgICAgICAgICAgICAgICAgICAgICAgICAgICAgICAg ICAgICAgICAgICAgICAgICAgICAgICANCiAgICAgICAgICAgICAgICAgICAgICAgICAgICAgICAgICAg ICAgICAgICAgICAgICAgICAgICAgICAgICAgICAgIC AgICAgICAgICAgICAgICAgICAgICAgICAgICAgICAgICANCiAgICAgICAgICAgICAgICAgICAgICAgIC AgICAgICAgICAgICAgICAgICAgICAgICAgICAgICAgICAgICAgICAgICAgICAgICAgICAgICAgICAgIC AgICAgICAgICAgICAgICANCiAgICAgICAgICAgICAg ICAgICAgICAgICAgICAgICAgICAgICAgICAgICAgICAgICAgICAgICAgICAgICAgICAgICAgICAgICAg ICAgICAgICAgICAgICAgICAgICAgICAgICANCiAgICAgICAgICAgICAgICAgICAgICAgICAgICAgICAg ICAgICAgICAgICAgICAgICAgICAgICAgICAgICAgIC AgICAgICAgICAgICAgICAgICAgICAgICAgICAgICAgICAgICANCiAgICAgICAgICAgICAgICAgICAgIC AgICAgICAgICAgICAgICAgICAgICAgICAgICAgICAgICAgICAgICAgICAgICAgICAgICAgICAgICAgIC AgICAgICAgICAgICAgICAgICANCiAgICAgICAgICAg ICAgICAgICAgICAgICAgICAgICAgICAgICAgICAgICAgICAgICAgICAgICAgICAgICAgICAgICAgICAg ICAgICAgICAgICAgICAgICAgICAgICAgICAgICANCiAgICAgICAgICAgICAgICAgICAgICAgICAgICAg ICAgICAgICAgICAgICAgICAgICAgICAgICAgICAgIC AgICAgICAgICAgICAgICAgICAgICAgICAgICAgICAgICAgICAgICANCiAgICAgICAgICAgICAgICAgIC AgICAgICAgICAgICAgICAgICAgICAgICAgICAgICAgICAgICAgICAgICAgICAgICAgICAgICAgICAgIC AgICAgICAgICAgICAgICAgICAgICANCiAgICAgICAg ICAgICAgICAgICAgICAgICAgICAgICAgICAgICAgICAgICAgICAgICAgICAgICAgICAgICAgICAgICAg ICAgICAgICAgICAgICAgICAgICAgICAgICAgICAgICANCjw/vLFtU9suzJYesgE2Q6maLm1DJg6LBG6c r1GyVOHdMEzpkeSxFtoMEjXyCSMgBthHTds9XKqcFY 4QyBBbA6QqB8YiCGdrQT3CBYEkCQLvoXHyLDFpWRSzAiP6WFClPKumYS6GlDIoGUfoWLJgHTBeSaJzJB QlIY3XSIOxC324jtJiGe5UGu5WVcUyOE0prc0ABqNeHYXpKnxGChk3GSkaAE5PeTHwC5XfvKWow4pUBa MxL0IAAPM2TYLpZj5LWOPvFcIeYAEqZYexSK6cWUAy AFCLwIkrlcR9LW3VDB0rxgQbXM6DVmSyPn6kOc8YUpGaJ5QeE0MvQWEeZVANDInmCD5OITIgMVJ7JJZa PVTpREVBRbNiP46uSK9YZ2Bvl71nKcU5ZZIjDgSgPMxnMQ47vCnmnwEaeYIiuIxfGN8CEh2+DQplbmRv NtcVPdfmPPQRQkYnEeZSBlZsUQItNRGkYTGfQaK7Od DtLx1AEEGwLHPgUZMcXvKlPALtUPJcVEbzTQMzCNT2NGM6PQPiFBUbCB1CMnHtCLYrFNqmWAImMEMtZL Idgp9JMJZpCNMlGKI6GzXiYMGmSYGdUDzuOSIdDNBsDLB9SHAoKUWfWJ8NXrRaHJXyIRYiUKgyOSTxMC Pnyc6FTZYwDBJuWnDrJbIkFXMjLHGyROeiDQGgWDKm LST7GQLiMXHdGF9NPdQcPBXbGAB9PbOgIJErPEQilq5OIUSgYIVkZOr4DMNwMYRiHBMnTRctVWOqUSH5 WZFwTGQeTJZzIQ2ITmCvTSToSOYjLGDrHKUzLBHsjb8YGNQsBGJdFeGlSaTySKRlGRDxBUffQWCaPSI1 QMijTYYiQSQsLF7OHeZrURBwRHr3HHyaZYTbRSIhzd 5MFSUwMSGnHyR9QZKyOVCoOXLpXIjgPQPvIZR7VMV5GERoQQPcIL4QRwScDEEvNBB2DuqoOYRmDMKltn 9BZGHsNHXmEyD4PULqAHNzJHMhCMtuVGOuUFU9CCj2KHMzNWAlHO1KItTgVYLcWYp2ZcAtUITfVEOved 1UvBVuxQhene0NWEtLAf5HqRsgXZMfWWbzAi3dvSKe HVOtFFTERm4GewXjDIXhTYQGTQjfSOYdRYPvQLKmEFN9KEGvHeGoQEb3BPIcVKEfQEb7TfIcX0QyFbC5 BTH8R5RdEoUeAOE4Z5IwIAOuRfZtTILwCgEmIVDyEXS+GW1vKCw+Lk3Fx9AdwrX3ptNcZJiiOTFnCl4R GPCQG7WJJv== ID Date Data Source [id number] 05/28/2020 08:40:00 AM EST [facility] ([facility] Name Value Range Interpretation Code Description Data Carey rce(s) Supporting Document(s) Cholesterol [Mass/volume] in Serum or Plasma 264 mg/dL 100 -199 Above high normal [facility] ([facility] Triglyceride [Mass/volume] in Serum or Plasma 411 mg/dL 0-149 Above high normal [facility] ([facility] Laboratory test finding (navigational concept) 147 mg/dL 0-99 Above high normal [facility] ([facility] Cholesterol in HDL [Mass/volume] in Serum or Plasma 40 mg/dL [facility] ([facility] Laboratory test finding (navigational concept) 77 mg/dL 5-40 Above high normal [facility] ([facility] Comment: Laboratory test result [facility] ([facility] ID Date Data Source [id number] 05/28/2020 08:40:00 AM EST [facility] ([facility] Name Value Range Interpretation Code Description Data Carey e(s) Supporting Document(s) Glucose [Mass/volume] in Serum or Plasma 90 mg/dL 65-99 [facility] ([facility] BUN 15 mg/dL 6-20 [facility] ([facility] Creatinine [Mass/volume] in Serum or Plasma 0.84 mg/dL 0.76-1.27 [facility] ([facility] eGFR If Africn Am 128 mL/min/1.73 ME [facility] ([facility] eGFR If NonAfricn Am 111 mL/min/1.73 [facility] ([facility] Urea nitrogen/Creatinine [Mass Ratio] in Serum or Plasma 18 9 -20 [facility] ([facility] Potassium [Moles/volume] in Serum or Plasma 4.6 mmol/L 3.5-5.2 [facility] ([facility] Sodium [Moles/volume] in Serum or Plasma 136 mmol/L 134-144 [facility] ([facility] Carbon dioxide, total [Moles/volume] in Serum or Plasma 23 mmol/L 20 -29 [facility] ([facility] Calcium [Mass/volume] in Serum or Plasma 9.5 mg/dL 8.7-10.2 [facility] ([facility] Chloride [Moles/volume] in Serum or Plasma 100 mmol/L 96-106 [facility] ([facility] Protein [Mass/volume] in Serum or Plasma 7.2 g/dL 6.0-8.5 [facility] ([facility] Globulin [Mass/volume] in Serum by calculation 2.5 g/dL 1.5-4.5 [facility] ([facility] Albumin [Mass/volume] in Serum or Plasma 4.7 g/dL 4.0-5.0 [facility] ([facility] Albumin/Globulin [Mass Ratio] in Serum or Plasma 1.9 1.2-2.2 [facility] ([facility] Bilirubin.total [Mass/volume] in Serum or Plasma 0.5 mg/dL 0.0-1.2 [facility] ([facility] Aspartate aminotransferase [Enzymatic activity/volume] in Serum or Plasma 24 IU/L 0-40 [facility] ([facility] Alkaline phosphatase [Enzymatic activity/volume] in Serum or Plasma 87 IU/L 39-117 [facility] Alanine aminotransferase [Enzymatic activity/volume] in Seru m or Plasma 30 IU/L 0-44 [facility] ([facility] ID Date Data Source [id number] 05/15/2020 06:36:00 AM EST [facility] ([facility] Name Value Range Interpretation Code Description Data Carey rce(s) Supporting Document(s) Erythrocyte sedimentation rate by Westergren method 1 mm/hr 0-15 Normal (applies to non-numeric results) [facility] ([facility] ID Date Data Source [id number] 05/15/2020 06:36:00 AM EST [facility] ([facility] Name Value Range Interpretation Code Description Data Carey rce(s) Supporting Document(s) White Blood Count 5.3 10 4.0-10.0 Normal (applies to non-numeri c results) [facility] ([facility] Hemoglobin 15.9 g/dL 13.5-17.5 Normal (applies to non-numeric resul ts) [facility] ([facility] Red Blood Count 5.50 10 4.30-6.10 Normal (applies to non-numeric results) [facility] ([facility] Mean Corpuscular Hemoglobin 28.9 pg 27.0-33.0 Norm al (applies to non-numeric results) [facility] ([facility] Mean Corpuscular Volume 85.8 fl 80.0-96.0 Normal ( applies to non-numeric results) [facility] ([facility] Hematocrit 47.2 % 42.0-52.0 Normal (applies to non-numeric resul ts) [facility] ([facility] Red Cell Distribution Width 12.6 % 11.5-14.5 Norm al (applies to non-numeric results) [facility] ([facility] ) Mean Corpuscular HGB Conc 33.7 g/dL 32.0-36.5 Normal (applies to non-numeric results) [facility] ([facility] Neutrophils % 46.8 % 36.0-66.0 Normal (applies to non-numeric re sults) [facility] ([facility] Lymph % 40.9 % 24.0-44.0 Normal (applies to non-numeric resul ts) [facility] ([facility] Platelet Count, Automated 274 10 150-450 Normal (applies to non-numeric results) [facility] ([facility] Eos % 3.2 % 0.0-3.0 Above high normal [facility] ([facility] Lanier % 8.0 % 0.0-5.0 Above high normal [facility] ([facility] Baso % 0.9 % 0.0-1.0 Normal (applies to non-numeric resul ts) [facility] ([facility] Nucleated Red Blood Cell % 0.0 % 0-0 Normal (applies to n on-numeric results) [facility] ([facility] Neutrophils # 2.5 10 1.5-8.5 Normal (applies to non-numeric re sults) [facility] ([facility] Immature Granulocyte % 0.2 % 0-3.0 Normal (applies to non-n umeric results) [facility] Eos # 0.2 10 0.0-0.5 Normal (applies to non-numeric resul ts) [facility] ([facility] Lanier # 0.4 10 0.0-0.8 Normal (applies to non-numeric resul ts) [facility] ([facility] Lymph # 2.2 10 1.5-5.0 Normal (applies to non-numeric resul ts) [facility] ([facility] Baso # 0.1 10 0.0-0.2 Normal (applies to non-numeric resul ts) [facility] ID Date Data Source [id number] 05/15/2020 06:36:00 AM EST [facility] ([facility] Name Value Range Interpretation Code Description Data Carey rce(s) Supporting Document(s) aPTT in Platelet poor plasma by Coagulation assay 33.9 s 24.2-38.5 Normal (applies to non-numeric results) [facility] ID Date Data Source [id number] 05/15/2020 06:36:00 AM EST [facility] ([facility] Name Value Range Interpretation Code Description Data Carey rce(s) Supporting Document(s) Prothrombin Time 12.0 s 12.5-14.3 Normal (applies to non-numeric results) [facility] ([facility] Inr 0.87 Normal (applies to non-numeric resul ts) [facility] THERAPUTIC HUMAN INR VALUES INDICATIONS NORMAL RANGES PROPHYLAXIS/TREATMENT OF: VENOUS THROMBOSIS 2.0-3.0 PULMONARY EMBOLISM 2.0-3.0 PREVENTION OF SYSTEMIC EMBOLISM FROM: TISSUE HEART VALVES 2.0-3.0 ACUTE MYOCARDIAL INFARCTION 2.0-3.0 VALVULAR HEART DISEASE 2.0-3.0 ATRIAL FIBRILLATION 2.0-3.0 MECHANICAL VALVES(HIGH RISK) 2.5-3.5 RECURRENT MYOCARDIAL INFARCTION 2.5-3.5 ID Date Data Source [id number] 05/15/2020 06:36:00 AM EST [facility] ([facility] Name Value Range Interpretation Code Description Data Carey rce(s) Supporting Document(s) Lipoprotein lipase [Enzymatic activity/volume] in Serum or P lasma 156 U/L 73-393 Normal (applies to non-numeric results) [facility] ([facility] Thyrotropin [Units/volume] in Serum or Plasma 2.680 uIU/ML 0. 358-3.740 Normal (applies to non-numeric results) [facility] Thyroxine (T4) free [Mass/volume] in Serum or Plasma 0.97 ng/dL 0.76-1.46 Normal (applies to non-numeric results) [facility] C reactive protein [Mass/volume] in Serum or Plasma by High sensitivity method 0.30 mg/dL 0.00-0.30 Normal (applies to non-numeric results) [facility] ID Date Data Source [id number] 05/15/2020 06:36:00 AM EST [facility] ([facility] Name Value Range Interpretation Code Description Data Carey rce(s) Supporting Document(s) Glucose, Fasting 93 mg/dL 70-100 Normal (applies to non-numeric results) [facility] ([facility] Blood Urea Nitrogen 17 mg/dL 7-18 Normal (applies to non-nume rajat results) [facility] Creatinine For GFR 0.89 mg/dL 0.70-1.30 Normal (applies to non -numeric results) [facility] ([facility] Glomerular Filtration Rate Laboratory test result Normal (applies to non- numeric results) [facility] ([facility] ) <content>Units are mL/min/1.73 m2</content>
<content></content>
<content>Chronic Kidney Disease Staging per NKF:</content>
<content></content>
<content>Stage I & II GFR >=60 Normal to Mildly Decreased</content>
<content>Stage III GFR 30- 59 Moderately Decreased</content>
<content>Stage IV GFR 15-29 Severely Decreased</content>
<content>Stage V GFR <15 Very Little GFR Left</content>
<content>ESRD GFR <15 on RECORDS MANAGEMENT MANAGER</content>
<content></content> Chloride Level 106 meq/L 98-107 Normal (applies to non-numeric r esults) [facility] ([facility] Potassium Serum 4.6 meq/L 3.5-5.1 Normal (applies to non-numeric results) [facility] ([facility] Sodium Level 137 meq/L 136-145 Normal (applies to non-numeric res ults) [facility] ([facility] Calcium Level 9.4 mg/dL 8.5-10.1 Normal (applies to non-numeric re sults) [facility] ([facility] Carbon Dioxide Level 26 meq/L 21-32 Normal (applies to non-num daniel results) [facility] ([facility] Anion Gap 5 meq/L 8-16 Below low normal [facility] ( [facility] ID Date Data Source [id number] 05/15/2020 06:36:00 AM EST [facility] ([facility] Name Value Range Interpretation Code Description Data Carey rce(s) Supporting Document(s) Alkaline Phosphatase 87 U/L 45-117 Normal (applies to non-num daniel results) [facility] ([facility] Alt/SGPT 43 U/L 12-78 Normal (applies to non-numeric resul ts) [facility] ([facility] Ast/Sgot 28 U/L 7-37 Normal (applies to non-numeric resul ts) [facility] ([facility] Bilirubin,Total 0.5 mg/dL 0.2-1.0 Normal (applies to non-numeric results) [facility] ([facility] Total Protein 7.3 GM/DL 6.4-8.2 Normal (applies to non-numeric re sults) [facility] ([facility] Bilirubin,Direct Laboratory test result 0.0-0.2 Normal ( applies to non-numeric results) [facility] ([facility] ) Albumin 3.7 GM/DL 3.2-5.2 Normal (applies to non-numeric resul ts) [facility] ([facility] Albumin/Globulin Ratio 1.0 Normal (applies to non-n umeric results) [facility] ID Date Data Source [id number] 05/15/2020 06:36:00 AM EST [facility] Name Value Range Interpretation Code Description Data Carey rce(s) Supporting Document(s) CPK Creatine Phosphokinase 140 U/L 39-308 Prabha l (applies to non-numeric results) [facility] ([facility] ) CK-MB Value Mass Laboratory test result Normal ( applies to non-numeric results) [facility] Troponin I Laboratory test result Normal (applies to non-n umeric results) [facility] ([facility] <content>Troponin I Reference Interval f or Siemens Burt LOCI:</content>
<content></content>
<content>99th Percentile= 0.00-0.045 ng/ml</content>
<content></content>
<content>Risk Stratification:</content>
<content><= 0.10 ng/ml Decreased Risk for Adverse Clinical</content>
<content>Events.</content>
<content>0.10-1.50 ng/ml Increased Risk for Adverse Clinical</content>
<content>Events. Evaluation of additional</content>
<content>criterion and/or repeat testing in 2-6</content>
<content>hours is suggested to rule out myocardial</content>
<content>damage.</content>
<content>>= 1.50 ng/ml Indicative of Myocardial Injury.</content>
<content></content> MB/CK Relative Index 0.71 Normal (applies to non-num daniel results) [facility] <content>DIAGNOSIS CRITERIA</content>
<content>MMB ng/ml Relative Index (RI)</content>
<content>NON-AMI < or = 5 N/A</content>
<content>SHANNON ZONE > 5 < or = 4</content>
<content>AMI > 5 > 4</content>
<content></content> Procedure Social History Code Duration Value Status Description Data Source(s ) Smoking 04/10/2021 12:00:00 AM EDT Patient has never smoked co mpleted Patient has never smoked [facility] ([facility]) Smoking 08/10/2020 12:00:00 AM EST Former smoker completed Former smoker [facility] Vital Signs ID Date Data Source UNK Name Value Range Interpretation Code Description Data Source(s) Systolic blood pressure 131 mm[Hg] 131 mm[Hg] [facility] Diastolic blood pressure 87 mm[Hg] 87 mm[Hg] [facility] ([facility]) Heart rate 73 /min 73 /min [facility] ([facility]) Respiratory rate 16 /min 16 /min [facility] ( [facility]) Oxygen saturation in Arterial blood by Pulse oximetry 96 % 96 % [facility] ([facility]) Body temperature 98.0 [degF] 98.0 [degF] [facility] ([facility]) Body weight 186.00 [lb_av] 186.00 [lb_av] [facility] ([facility]) Body height 69 [in_i] 69 [in_i] [facility] ([facility]) 5'9" Body mass index (BMI) [Ratio] 27.5 kg/m2 27.5 k g/m2 [facility] ([facility]) Systolic blood pressure 128 mm[Hg] 128 mm[Hg] M [facility] ([facility]) Diastolic blood pressure 82 mm[Hg] 82 mm[Hg] [facility] ([facility]) Body height 69 [in_i] 69 [in_i] [facility] ([facility]) 5'9" Body weight 191.00 [lb_av] 191.00 [lb_av] [facility] ([facility]) Body mass index (BMI) [Ratio] 28.2 kg/m2 28.2 k g/m2 [facility] ([facility]) [place] body weight 160 [lb_av] 160 [lb_av] [facility] ([facility]) Body weight 86.638 kg 86.638 kg [facility] ([facility]) Body surface area Derived from formula 2.03 m2 2.03 m2 [facility] ([facility]) [place] body weight 160 [lb_av] 160 [lb_av] [facility] ([facility]) Body height 69 [in_i] 69 [in_i] [facility] ([facility]) 5'9" Body weight 86.638 kg 86.638 kg [facility] ([facility]) Body weight 191.00 [lb_av] 191.00 [lb_av] [facility] ([facility]) Body mass index (BMI) [Ratio] 28.2 kg/m2 28.2 k g/m2 [facility] ([facility]) Body surface area Derived from formula 2.03 m2 2.03 m2 [facility] ([facility]) Systolic blood pressure 128 mm[Hg] 128 mm[Hg] M [facility] ([facility]) Diastolic blood pressure 82 mm[Hg] 82 mm[Hg] [facility] ([facility]) Diastolic blood pressure 88 mm[Hg] 88 mm[Hg] [facility] ([facility] Systolic blood pressure 136 mm[Hg] 136 mm[Hg] [facility] ([facility] Heart rate 80 /min 80 /min [facility] ([facility] Respiratory rate 14 /min 14 /min [facility] ( [facility] Body weight 194.00 [lb_av] 194.00 [lb_av] [facility] ([facility] Systolic blood pressure 116 mm[Hg] 116 mm[Hg] [facility] Body mass index (BMI) [Ratio] 29.39 kg/m2 29.39 kg/m2 [facility] Body weight 90.266 kg 90.266 kg [facility] Diastolic blood pressure 80 mm[Hg] 80 mm[Hg] [facility] Heart rate 68 /min 68 /min [facility] Respiratory rate 16 /min 16 /min [facility] Body height 175.3 cm 175.3 cm [facility] Systolic blood pressure 110 mm[Hg] 110 mm[Hg] [facility] ([facility] Diastolic blood pressure 70 mm[Hg] 70 mm[Hg] [facility] ([facility] Respiratory rate 14 /min 14 /min [facility] ( [facility] Heart rate 70 /min 70 /min [facility] ([facility] Body weight 197.00 [lb_av] 197.00 [lb_av] [facility] ([facility]
--- OUTSIDE RECORDS SUMMARY | 2021-04-11 07:48 | CCD | Continuity of Care Document ---
Author Author Judd LEHMAN Organization Unknown Address [address] [place] [address], [address] [place] [address] Phone [phone] Care Team Providers Care Transfer Table Operator Helper Name Role Phone Fantasma Anne M.D. AUTM [phone] Problems Description No Active Problems Social History Type Date Description Comments Sex Unknown ETOH Use 2 A Week Tobacco Use Start: Unknown Non Smoker Tobacco Use Start: Unknown Chewing Tobacco 1 can per day Allergies, Adverse Reactions, Alerts Active Allergies Criticality Reaction | Severity Comments Date Demerol Unable to assess criticality 11/02/2011 Darvocet Unable to assess criticality 11/02/2011 Medications Active Medications SIG Qnty Indications Ordering Provide r Date Tums 500mg Chewtabs 1 tab by mouth as needed Unknown Immunizations Description No Information Available Vital Signs Date Vital Result Comment 02/02/2021 2:37pm BP Systolic 128 mmHg BP Diastolic 82 mmHg Height 69 inches 5'9" Weight 191.00 lb BMI (Body Mass Index) 28.2 kg/m2 [place] Body Weight 160 lb Weight 86.638 kg BSA (Body Surface Area) 2.03 m2 02/01/2021 2:27pm BP Systolic 128 mmHg BP Diastolic 82 mmHg Height 69 inches 5'9" Weight 191.00 lb BMI (Body Mass Index) 28.2 kg/m2 [place] Body Weight 160 lb Weight 86.638 kg BSA (Body Surface Area) 2.03 m2 Results Description No Information Available Procedures Date Code Description Status 02/02/2021 27574 Office/Outpatient New Moderate M DM 45-59 Minutes Completed Medical Devices Description No Information Available Encounters Type Date Location Provider Dx Diagnosis Office Visit 02/02/2021 2:00p [facility] ctDEREK Cleary K21.9 Gastro-esophageal reflux dis ease without esophagitis R10.13 Epigastric pain Assessments Date Code Description Provider 02/02/2021 K21.9 Gastro-esophageal reflux disease without esophagitis Nichelle A DEREK Lehman 02/02/2021 R10.13 Epigastric pain Nichelle Funes DEREK James Plan of Treatment Future Appointment(s):* 05/09/2021 2:00 am - Alejo Sierra MD at [facility] 02/02/2021 - Nichelle Shantel DEREK Lehman* K21.9 Gastro-esophageal reflux disease without esophagitis * R10.13 Epigastric pain * * New Orders:* Endoscopy, Ordered: 02/02/21 * Comments:* Will arrange for upper endoscopy. Reviewed risks and benefits of the procedure, as well as other options, with the patient. Prep for this procedure was discussed with patient. A medical clearance will be obtained from his PCP due to recent heart monitor that he had completed. Patient verbalized understanding of all of the above and is in agreement to proceed. Patient will seek medical attention for any acute changes. Will monitor. * Follow up:* As scheduled, sooner if needed. Functional Status Description No Information Available Mental Status Description No Information Available Referrals Refer to Reason for Referral Status Appt Date Alejo Sierra M.D. K21.9 GASTRO ESOPHAGEAL REFLUX WITHOUT E SOPHAGITIS Scheduled 02/02/2021 [facility], Gastroenterology [address] [place] [address], [address] [place] [address] [phone]
--- OUTSIDE RECORDS SUMMARY | 2021-04-11 07:48 | CCD | Continuity of Care Document ---
Author Author Judd LEHMAN Organization Unknown Address [address] [place] [address], [address] [place] [address] Phone [phone] Care Team Providers Care Patient Care Assistant Name Role Phone Fantasma Anne M.D. AUTM [phone] Problems Description No Active Problems Social History Type Date Description Comments Sex Unknown ETOH Use 2 A Week Tobacco Use Start: Unknown Non Smoker Tobacco Use Start: Unknown Chewing Tobacco 1 can per day Allergies, Adverse Reactions, Alerts Active Allergies Reaction Severity Comments Date Demerol 11/02/2011 Darvocet 11/02/2011 Medications Active Medications SIG Qnty Indications Ordering Provide r Date Tums 500mg Chewtabs 1 tab by mouth as needed Unknown Immunizations Description No Information Available Vital Signs Date Vital Result Comment 02/02/2021 2:37pm BP Systolic 128 mmHg BP Diastolic 82 mmHg Height 69 inches 5'9" Weight 191.00 lb BMI (Body Mass Index) 28.2 kg/m2 [place] Body Weight 160 lb Weight 86.638 kg BSA (Body Surface Area) 2.03 m2 02/01/2021 2:27pm BP Systolic 128 mmHg BP Diastolic 82 mmHg Height 69 inches 5'9" Weight 191.00 lb BMI (Body Mass Index) 28.2 kg/m2 [place] Body Weight 160 lb Weight 86.638 kg BSA (Body Surface Area) 2.03 m2 Results Description No Information Available Procedures Description No Information Available Medical Devices Description No Information Available Encounters Description No Information Available Assessments Date Code Description Provider 02/02/2021 K21.9 Gastro-esophageal reflux disease without esophagitis DEREK Harley 02/02/2021 R10.13 Epigastric pain DEREK Barbosa Plan of Treatment 02/02/2021 - Nichelle Lehman, RPA-C* K21.9 Gastro-esophageal reflux disease without esophagitis * [...] ESOPHAGEAL REFLUX WITHOUT E SOPHAGITIS Scheduled 02/02/2021 [facility], Gastroenterology [address], [address] [place] [address] [phone]
--- OUTSIDE RECORDS SUMMARY | 2021-04-11 07:48 | CCD | Continuity of Care Document ---
Author Author Judd MICHELLE Organization Unknown Address [address] [place] [address] [place] [address] Phone [phone] Care Team Providers Care Dowel Sander Operator Name Role Phone [facility] Available Procedures Date Code Description Status 04/10/2021 98126 Office/Outpatient New Low [facility] 30 -44 Minutes Completed Medical Devices [...]
[2021-04-11 08:28] LABS: BASO # 0.1 10^3/uL (0.0-0.2); BASO % 0.8 % (0.0-1.0); EOS # 0.2 10^3/uL (0.0-0.5); EOS % 2.4 % (0.0-3.0); HEMATOCRIT 49.8 % (42.0-52.0); LYMPH # 2.8 10^3/uL (1.5-5.0); LYMPH % 38.5 % (24.0-44.0); MEAN CORPUSCULAR HEMOGLOBIN 28.8 pg (27.0-33.0); MEAN CORPUSCULAR HGB CONC 34.1 g/dl (32.0-36.5); MEAN CORPUSCULAR VOLUME 84.3 fl (80.0-96.0); MONO # 0.5 10^3/uL (0.0-0.8); MONO % 7.1 % (2.0-8.0); NEUTROPHILS # 3.6 10^3/uL (1.5-8.5); NEUTROPHILS % 50.9 % (36.0-66.0); PLATELET COUNT, AUTOMATED 323 10^3/uL (150-450); RED BLOOD COUNT 5.91 10^6/uL (4.30-6.10); WHITE BLOOD COUNT 7.2 10^3/uL (4.0-10.0)
--- NOTE | 2021-04-11 08:35 | REP ---
INDICATION: CHEST PAIN. COMPARISON: Portable chest, 11/29/2020. TECHNIQUE: Upright AP portable chest image was obtained. FINDINGS: The lungs are clear. The heart borders, mediastinum and pulmonary vascular pattern normal. The upper abdominal bowel gas pattern is normal. There are no bony abnormalities of the chest. IMPRESSION: No evidence of acute cardiopulmonary pathology. <Electronically signed by Rex Rousseau > 04/11/21 0810
--- OUTSIDE RECORDS SUMMARY | 2021-04-11 08:53 | CCD ---
Author Author [facility] Organization [facility] Address Unknown Phone Unavailable Care Team Providers Care Grounding Engineer Name Role Phone Charlebois, A Nichelle RPA C Unavailable Unavailable [...] Nichelle RPA C Unavailable Unavailable Charlebois, A Ncihelle RPA C Unavailable Unavailable Charlebois, A Nichelle [...] Unavailable Donte STOVER MD Unavailable Unavailable Donte TSOVER MD Unavailable Unavailable Donte STOVER MD Unavailable [...] Unavailable MIGUEL ANGEL, CONCEPCION PA Unavailable Unavailable MIGULE ANGEL, CONCEPCION PA Unavailable Unavailable MIGUEL ANGEL, CONCEPCION PA Unavailable Unavailable MIGUEL ANGEL, CONCEPCION PA Unavailable Unavailable MIGUEL ANGEL, CONCEPCION PA Unavailable Unavailable Tereso, N Evaristo FOLDING MACHINE SETTER Unavailable Unavailable Tereso, N Evaristo FOLDING MACHINE SETTER Unavailable Unavailable Tereso, N Evaristo FOLDING MACHINE SETTER Unavailable Unavailable Tereso, N Evaristo FOLDING MACHINE SETTER Unavailable Unavailable Tereso, N Evaristo FOLDING MACHINE SETTER Unavailable Unavailable Tereso, N Evaristo FOLDING MACHINE SETTER Unavailable Unavailable [place], N Evaristo FOLDING MACHINE SETTER Unavailable Unavailable [place], N Evaristo FOLDING MACHINE SETTER Unavailable Unavailable Tereso, N Evaristo FOLDING MACHINE SETTER Unavailable Unavailable Tereso, N Evaristo FOLDING MACHINE SETTER Unavailable Unavailable [place], N Evaristo FOLDING MACHINE SETTER Unavailable Unavailable [place], N Evaristo FOLDING MACHINE SETTER Unavailable Unavailable [place], N Evaristo FOLDING MACHINE SETTER Unavailable Unavailable Tereso, N Evaristo FOLDING MACHINE SETTER Unavailable Unavailable Tereso, N Evaristo FOLDING MACHINE SETTER Unavailable Unavailable [place], N Evaristo FOLDING MACHINE SETTER Unavailable Unavailable Tereso, N Evaristo FOLDING MACHINE SETTER Unavailable Unavailable [place], N Evaristo FOLDING MACHINE SETTER Unavailable Unavailable Tereso, N Evaristo FOLDING MACHINE SETTER Unavailable Unavailable [place], N Evaristo FOLDING MACHINE SETTER Unavailable Unavailable [place], N Evaristo FOLDING MACHINE SETTER Unavailable Unavailable Tereso, N Evaristo FOLDING MACHINE SETTER Unavailable Unavailable [place], N Evaristo FOLDING MACHINE SETTER Unavailable Unavailable Tereso, N Evaristo FOLDING MACHINE SETTER Unavailable Unavailable [place], N Vearisto FOLDING MACHINE SETTER Unavailable Unavailable [place], N Evaristo FOLDING MACHINE SETTER Unavailable Unavailable Tereso, N Evaristo FOLDING MACHINE SETTER Unavailable Unavailable Tereso, N Evaristo FOLDING MACHINE SETTER Unavailable Unavailable Tereso, N Evaristo FOLDING MACHINE SETTER Unavailable Unavailable [place], N Evaristo FOLDING MACHINE SETTER Unavailable Unavailable [place], N Evaristo FOLDING MACHINE SETTER Unavailable Unavailable Tereso, N Evaristo FOLDING MACHINE SETTER Unavailable Unavailable Tereso, N Evaristo FOLDING MACHINE SETTER Unavailable Unavailable Denice Gray MD Unavailable Unavailable [...] Unavailable Unavailable Denice Gray MD Unavailable Unavailable SlezkaDenice MD Unavailable Unavailable [employer]Sukhwinder[employer]tech Unavailable Unavailable SlezkaSukhwinderjtech Unavailable [...] is protected by Article 27-F of the [facility] Public Health law. If you continue you may have access to information: Regarding HIV / AIDS; Provided by facilities licensed or operated by the [facility] Office of Mental Health; or Provided by the [facility] Office for People With Developmental Disabilities. If such information is present, then the following [facility] mandated warning applies: This information has been [...] law may result in a fine or mcc sentence or both. A general authorization for the release of medical or other information is NOT sufficient authorization for further disc losure. Encounters Encounter Providers Location Date Indications Data Source(s ) Outpatient Attender: CONCEPCION agosto 04/10/2021 08:40:00 AM EDT [facility] ([facility]) Outpatient Attender: Nichelle Parks/Danilo/Shantel lopez/Rigo 02/02/2021 02:00:00 PM EDT [facility] ([facility] Tori lundberg, ) Outpatient Attender: DASH STOVER MD [facility] 09:00:00 AM EDT [facility] Outpatient АННА-JAZZY 08/14/2020 01:40:42 PM [facility] Outpatient Referrer: Denice BIANCHICT-JAZZY.TRAM 07/20 03:47:32 PM EST [facility] Outpatient Attender: Evaristo Rider NP SJP.АННА-SJP.АННА 08/10/2020 12 :00:00 AM EST [facility] Outpatient Attender: DASH STOVER MD [facility] 04/2020 07:30:00 AM EST [facility] ([facility] Medications Medication Brand Name Start Date Product Form Dose Route Admi nistrative Instructions Pharmacy Instructions Status Indications Reaction Description Data Source(s) No Active Medications 04/10/2021 12:00:00 AM EDT completed [facility] ([facility]) Cefadroxil 500 MG Oral Capsule Cefadroxil 04/10/2021 12:00:00 AM EDT ORAL active [facility] ([facility]) Insurance Providers Payer name Policy type / Coverage type Policy ID Covered green party ID Covered green party's relationship to holden Policy Holden Plan Information [facility] [id number] SP [id number] [facility] [place] [id number] SP [id number] [place] 302/307 [id number] SP [id number] [place] 302/307 [id number] SP [id number] [place]CELL[place] BCBS B [id number] S [id number] SELF PAY UNAVAILABLE UNAVAILA BLE ONE CALL CARE MANAGEMENT O [id number] S [id number] [facility] PL[facility] [place] [id number] SP [id number] ESIS P [id number] S [id number] [employer]LL[place] BCBS P [id number] S [id number] [facility] 303/803 P [id number] S [id number] BCBS O [id number] S [id number] ESIS CLAIMS WC [id number] S [id number] BLUE CROSS BLUE SHIELD -O/P [id number] [facility] O [id number] S [id number] Problems, Conditions, and Diagnoses No Information Surgeries/Procedures Procedure Description Date Indications Data Source(s) OFFICE OUTPATIENT NEW 30 MINUTES 04/10/2021 12:00:00 A M EDT [facility] ([facility]) OFFICE OUTPATIENT NEW 45 MINUTES 02/02/2021 12:00:00 A M EDT [facility] ([facility], ) OFFICE OUTPATIENT VISIT 25 MINUTES 12/01/2020 12:00:00 AM EDT [facility] ([facility] POCT AMB EKG <td>POCT AMB EKG</td><td>Rou oliver</td><td>08/10/2020 12:00 PM EST</td><td> Palpitations</td><td> </td> 08/10/2020 05:00:00 PM EST Palpitations [facility] Palpitations Results ID Date Data Source [id number] 04/10/2021 10:38:00 AM EDT [facility] ([facility]) Name Value Range Interpretation Code Description Data Carey rce(s) Supporting Document(s) Gram Stain Laboratory test result [facility] ([facility]) NO CELLS SEEN NO ORGANISMS SEEN ID Date Data Source [id number] 03/30/2021 12:00:00 AM EDT [facility] Name Value Range Interpretation Code Description Data Carey rce(s) Supporting Document(s) SARS coronavirus 2 RNA Not Detected [facility] This lab was ordered by [facility] and rep orted by [facility]. ID Date Data Source [id number] 12/01/2020 09:15:00 AM EDT [facility] ([facility] Name Value Range Interpretation Code Description Data Carey rce(s) Supporting Document(s) Cholesterol [Mass/volume] in Serum or Plasma 258 mg/dL 100 -199 Above high normal [facility] ([facility] ) Cholesterol in HDL [Mass/volume] in Serum or Plasma 37 mg/dL Below low normal [facility] ([facility] Triglyceride [Mass/volume] in Serum or Plasma 572 mg/dL 0- 149 Above upper panic limits [facility] ([facility] ) Comment: Laboratory test result [facility] ([facility] Laboratory test finding (navigational concept) 102 mg/dL 5-40 Above high normal [facility] ([facility] Laboratory test finding (navigational concept) 119 mg/dL 0-99 Above high normal [facility] ([facility] ID Date Data Source [id number] 12/01/2020 09:15:00 AM EDT [facility] ([facility] Name Value Range Interpretation Code Description Data Carey rce(s) Supporting Document(s) Glucose [Mass/volume] in Serum or Plasma 83 mg/dL 65-99 [facility] ([facility] BUN 14 mg/dL 6-20 [facility] ([facility] Creatinine [Mass/volume] in Serum or Plasma 0.91 mg/dL 0.76-1.27 [facility] ([facility] eGFR If NonAfricn Am 107 mL/min/1.73 [facility] ([facility] eGFR If Africn Am 123 mL/min/1.73 [facility] ([facility] currently reports eGFR in comp liance with the current recommendations of the National Kidney Foundation. [facility] will update reporting as new guidelines are published from the NKF-ASN Task force. Urea nitrogen/Creatinine [Mass Ratio] in Serum or Plasma 15 9 -20 [facility] ([facility] Sodium [Moles/volume] in Serum or Plasma 139 mmol/L 134-144 [facility] ([facility] Potassium [Moles/volume] in Serum or Plasma 4.5 mmol/L 3.5-5.2 [facility] ([facility] Chloride [Moles/volume] in Serum or Plasma 102 mmol/L 96-106 [facility] ([facility] Carbon dioxide, total [Moles/volume] in Serum or Plasma 23 mmol/L 20 -29 [facility] ([facility] Protein [Mass/volume] in Serum or Plasma 7.2 g/dL 6.0-8.5 [facility] ([facility] Calcium [Mass/volume] in Serum or Plasma 9.4 mg/dL 8.7-10.2 [facility] ([facility] Albumin [Mass/volume] in Serum or Plasma 4.5 g/dL 4.0-5.0 [facility] ([facility] Globulin [Mass/volume] in Serum by calculation 2.7 g/dL 1.5-4.5 [facility] ([facility] Albumin/Globulin [Mass Ratio] in Serum or Plasma 1.7 1.2-2.2 [facility] ([facility] Bilirubin.total [Mass/volume] in Serum or Plasma 0.3 mg/dL 0.0-1.2 [facility] ([facility] Alkaline phosphatase [Enzymatic activity/volume] in Serum or Plasma 87 IU/L 48-121 [facility] ([facility] Alanine aminotransferase [Enzymatic activity/volume] in Seru m or Plasma 25 IU/L 0-44 [facility] ([facility] Aspartate aminotransferase [Enzymatic activity/volume] in Serum or Plasma 18 IU/L 0-40 [facility] ([facility] ID Date Data Source [id number] 08/14/2020 01:32:45 PM EST [facility] Name Value Range Interpretation Code Description Data Carey rce(s) Supporting Document(s) &PDF [facility] [id number]/QIRxdNOZcd8NbTBepMHy7NFxuBDBdZ5TupZbfFZPMTGHYT51tNLNXQQWhCEch vci [file] ICAgICAgICAgICAgICAgICAgICAgICAgICAgICAgICAgICAgICAgICAgICAgICAgICAgICAgICAgICAg ICAgICAgICAgICAgICAgICAgICAgICANCiAgICAgICAgICAgICAgICAgICAgICAgICAgICAgICAgICAg ICAgICAgICAgICAgICAgICAgICAgICAgICAgICAgIC AgICAgICAgICAgICAgICAgICAgICAgICAgICAgICAgICANCiAgICAgICAgICAgICAgICAgICAgICAgIC AgICAgICAgICAgICAgICAgICAgICAgICAgICAgICAgICAgICAgICAgICAgICAgICAgICAgICAgICAgIC AgICAgICAgICAgICAgICANCiAgICAgICAgICAgICAg ICAgICAgICAgICAgICAgICAgICAgICAgICAgICAgICAgICAgICAgICAgICAgICAgICAgICAgICAgICAg ICAgICAgICAgICAgICAgICAgICAgICAgICANCiAgICAgICAgICAgICAgICAgICAgICAgICAgICAgICAg ICAgICAgICAgICAgICAgICAgICAgICAgICAgICAgIC AgICAgICAgICAgICAgICAgICAgICAgICAgICAgICAgICAgICANCiAgICAgICAgICAgICAgICAgICAgIC AgICAgICAgICAgICAgICAgICAgICAgICAgICAgICAgICAgICAgICAgICAgICAgICAgICAgICAgICAgIC AgICAgICAgICAgICAgICAgICANCiAgICAgICAgICAg ICAgICAgICAgICAgICAgICAgICAgICAgICAgICAgICAgICAgICAgICAgICAgICAgICAgICAgICAgICAg ICAgICAgICAgICAgICAgICAgICAgICAgICAgICANCiAgICAgICAgICAgICAgICAgICAgICAgICAgICAg ICAgICAgICAgICAgICAgICAgICAgICAgICAgICAgIC AgICAgICAgICAgICAgICAgICAgICAgICAgICAgICAgICAgICAgICANCiAgICAgICAgICAgICAgICAgIC AgICAgICAgICAgICAgICAgICAgICAgICAgICAgICAgICAgICAgICAgICAgICAgICAgICAgICAgICAgIC AgICAgICAgICAgICAgICAgICAgICANCiAgICAgICAg ICAgICAgICAgICAgICAgICAgICAgICAgICAgICAgICAgICAgICAgICAgICAgICAgICAgICAgICAgICAg ICAgICAgICAgICAgICAgICAgICAgICAgICAgICAgICANCjw/pUIyC4cewAIhuoV8Q1hzKl9SEu4PVE3c f9TqKHTwRSjdjtEjStaXDjTvTUWbAqpUEgr8NVpoSN 5NcAUsE8LtX5DmSZrzVS5WKEZePOQfaLMyMDXeYOChGgC9KBOdUNwxKN6HcCSxYYwuADNqUJPvOwDmQP RyPF2CMPXdH732ioKuZz0RSb2NUtVaZG3heo4XZsNzNNQvOpgVLvg9EJsxVD9EbVSvC9MenZJto9cGQm FnO6TQXXV8OYQvRl7SDNOqXdFhIYPiGQnbPS6qWTIm QJQOcRyapiK7UK8KXJ7lsrAoCL1GZeBtMn5bIr9BBlZrI3OpQ3GrYBLzHWOFSFtpXR2JNJXkHSM6MEWc FLAiPQEADeFmK33gPY8TG5Dey54sJiH5UZLiCaShNObcGO69zTgxssUmbXMufQyqAS0KPx4+DQplbmRv PwwQQcslPEKCEzJhDxATZiZcTIOqJZLdBSUqVrS5Xl IfEi4GXRYlFRHxUDCcNwJeIFUdXSIrWAurHHMoCXS7IZO7UJKbDPIeBU9MZzLfMBHhRNjsOWBcLLAsBS Bcqs6RNWZhGFWkNKL7McXnHJAdYCBfAHxcMVPaCRWsFKN7HYEtTSAyIO2RKeUbJRJfABQwRQitTDTbPO Mfkf7RMQKkFTEqBmKvYiGpPIBfLNOsASlmPEHoKGZc LEN7HGMkCSQmSD0CGzTrVUGiKKI2LmTmLPOsEKGvkz3GQNJxAOOfIQr5MTRfETArBWNvLBlkFGJuUTM1 QZHmAGLdVMYvLK7EYoYtHABqQMPaUVRuLZNmYQRocz3YVGIiZOMxGpMqMmRdZLMaSPRfLYnmRAFwMHA4 YMeaNZGhJIIaVQ6PWiElNEGwSBs0GHheGJHeDRKzvl 9NBIKqIZXkLyZ1PEOnNZEkEGEmCLupHELjTAV3JEZ9QNVoFRMvIP6TNoBmGIGfNGV8CjofZRZjAGNrft 0RXYDmLUGdGoK6IXOfEFCmPBMzMLhqRYTmRAI6GKe4ZTMcBMZoCU5UUlUzVCFfVSz1PmIwFGViHNWjtt 0IhAAxiNaxyt4LHLxOGz3RkOkkOLZbVGeoQt5bdYPx ZFJmRZVGAj2UsmXiEPRlBDCTZUzvMXVfBUAwNKTeTMQ3YVSpAiJgVAh2XNFiKGBzHZs9UeUxL4PzHzT4 ZKP3F1MwTiUwZKN1D1LlISNlVaLcFAGmPsCuXNIdQLS+JZ0hMMx+Oo6Ks1UkrlY7zsViDKxfGANoQp2D YDMIJ1FXHd== ID Date Data Source [id number] 05/28/2020 08:40:00 AM EST [facility] ([facility] Name Value Range Interpretation Code Description Data Carey rce(s) Supporting Document(s) Cholesterol [Mass/volume] in Serum or Plasma 264 mg/dL 100 -199 Above high normal [facility] ([facility] ) Triglyceride [Mass/volume] in Serum or Plasma 411 mg/dL 0-149 Above high normal [facility] ([facility] Laboratory test finding (navigational concept) 147 mg/dL 0-99 Above high normal [facility] ([facility] Cholesterol in HDL [Mass/volume] in Serum or Plasma 40 mg/dL [facility] ([facility] Laboratory test finding (navigational concept) 77 mg/dL 5-40 Above high normal [facility] ([facility] Comment: Laboratory test result [facility] ([facility] ID Date Data Source [id number] 05/28/2020 08:40:00 AM EST [facility] ([facility] Name Value Range Interpretation Code Description Data Carey rce(s) Supporting Document(s) Glucose [Mass/volume] in Serum or Plasma 90 mg/dL 65-99 [facility] ([facility] BUN 15 mg/dL 6-20 [facility] ([facility] Creatinine [Mass/volume] in Serum or Plasma 0.84 mg/dL 0.76-1.27 [facility] ([facility] eGFR If Africn Am 128 mL/min/1.73 [facility] ([facility] eGFR If NonAfricn Am 111 mL/min/1.73 [facility] ([facility] Urea nitrogen/Creatinine [Mass Ratio] in Serum or Plasma 18 9 -20 [facility] ([facility] Potassium [Moles/volume] in Serum or Plasma 4.6 mmol/L 3.5-5.2 [facility] ([facility] Sodium [Moles/volume] in Serum or Plasma 136 mmol/L 134-144 [facility] ([facility] Carbon dioxide, total [Moles/volume] in Serum or Plasma 23 mmol/L 20 -29 [facility] ([facility] Calcium [Mass/volume] in Serum or Plasma 9.5 mg/dL 8.7-10.2 [facility] ([facility] Chloride [Moles/volume] in Serum or Plasma 100 mmol/L 96-106 [facility] ([facility] Protein [Mass/volume] in Serum or Plasma 7.2 g/dL 6.0-8.5 [facility] ([facility] Globulin [Mass/volume] in Serum by calculation 2.5 g/dL 1.5-4.5 [facility] ([facility] Albumin [Mass/volume] in Serum or Plasma 4.7 g/dL 4.0-5.0 [facility] ([facility] Albumin/Globulin [Mass Ratio] in Serum or Plasma 1.9 1.2-2.2 [facility] ([facility] Bilirubin.total [Mass/volume] in Serum or Plasma 0.5 mg/dL 0.0-1.2 [facility] ([facility] Aspartate aminotransferase [Enzymatic activity/volume] in Serum or Plasma 24 IU/L 0-40 [facility] ([facility] Alkaline phosphatase [Enzymatic activity/volume] in Serum or Plasma 87 IU/L 39-117 [facility] ([facility] Alanine aminotransferase [Enzymatic activity/volume] in Seru m or Plasma 30 IU/L 0-44 [facility] ([facility] ID Date Data Source [id number] 05/15/2020 06:36:00 AM EST [facility] ([facility] Name Value Range Interpretation Code Description Data Carey rce(s) Supporting Document(s) Erythrocyte sedimentation rate by Westergren method 1 mm/hr 0-15 Normal (applies to non-numeric results) [facility] ([facility] ID Date Data Source [id number] 05/15/2020 06:36:00 AM EST [facility] ([facility] Name Value Range Interpretation Code Description Data Carey rce(s) Supporting Document(s) White Blood Count 5.3 10 4.0-10.0 Normal (applies to non-numeri c results) [facility] ([facility] Hemoglobin 15.9 g/dL 13.5-17.5 Normal (applies to non-numeric resul ts) [facility] ([facility] Red Blood Count 5.50 10 4.30-6.10 Normal (applies to non-numeric results) [facility] ([facility] Mean Corpuscular Hemoglobin 28.9 pg 27.0-33.0 Norm al (applies to non-numeric results) [facility] ([facility] ) Mean Corpuscular Volume 85.8 fl 80.0-96.0 Normal ( applies to non-numeric results) [facility] ([facility] ) Hematocrit 47.2 % 42.0-52.0 Normal (applies to non-numeric resul ts) [facility] ([facility] Red Cell Distribution Width 12.6 % 11.5-14.5 Norm al (applies to non-numeric results) [facility] ([facility] ) Mean Corpuscular HGB Conc 33.7 g/dL 32.0-36.5 Normal (applies to non-numeric results) [facility] ([facility] ) Neutrophils % 46.8 % 36.0-66.0 Normal (applies to non-numeric re sults) [facility] ([facility] Lymph % 40.9 % 24.0-44.0 Normal (applies to non-numeric resul ts) [facility] ([facility] Platelet Count, Automated 274 10 150-450 Normal (applies to non-numeric results) [facility] ([facility] Eos % 3.2 % 0.0-3.0 Above high normal [facility] ([facility] Morrison % 8.0 % 0.0-5.0 Above high normal [facility] ([facility] Baso % 0.9 % 0.0-1.0 Normal (applies to non-numeric resul ts) [facility] ([facility] Nucleated Red Blood Cell % 0.0 % 0-0 Normal (applies to n on-numeric results) [facility] ([facility] Neutrophils # 2.5 10 1.5-8.5 Normal (applies to non-numeric re sults) [facility] ([facility] Immature Granulocyte % 0.2 % 0-3.0 Normal (applies to non-n umeric results) [facility] ([facility] Eos # 0.2 10 0.0-0.5 Normal (applies to non-numeric resul ts) [facility] ([facility] Morrison # 0.4 10 0.0-0.8 Normal (applies to non-numeric resul ts) [facility] ([facility] Lymph # 2.2 10 1.5-5.0 Normal (applies to non-numeric resul ts) [facility] ([facility] Baso # 0.1 10 0.0-0.2 Normal (applies to non-numeric resul ts) [facility] ([facility] ID Date Data Source [id number] 05/15/2020 06:36:00 AM EST [facility] Name Value Range Interpretation Code Description Data Carey rce(s) Supporting Document(s) aPTT in Platelet poor plasma by Coagulation assay 33.9 s 24.2-38.5 Normal (applies to non-numeric results) [facility] ([facility] ID Date Data Source [id number] 05/15/2020 06:36:00 AM EST [facility] ([facility] Name Value Range Interpretation Code Description Data Carey rce(s) Supporting Document(s) Prothrombin Time 12.0 s 12.5-14.3 Normal (applies to non-numeric results) [facility] ([facility] Inr 0.87 Normal (applies to non-numeric resul ts) [facility] ([facility] THERAPUTIC HUMAN INR VALUES INDICATIONS NORMAL RANGES PROPHYLAXIS/TREATMENT OF: VENOUS THROMBOSIS 2.0-3.0 PULMONARY EMBOLISM 2.0-3.0 PREVENTION OF SYSTEMIC EMBOLISM FROM: TISSUE HEART VALVES 2.0-3.0 ACUTE MYOCARDIAL INFARCTION 2.0-3.0 VALVULAR HEART DISEASE 2.0-3.0 ATRIAL FIBRILLATION 2.0-3.0 MECHANICAL VALVES(HIGH RISK) 2.5-3.5 RECURRENT MYOCARDIAL INFARCTION 2.5-3.5 ID Date Data Source [id number] 05/15/2020 06:36:00 AM EST [facility] ([facility] Name Value Range Interpretation Code Description Data Carey rce(s) Supporting Document(s) Lipoprotein lipase [Enzymatic activity/volume] in Serum or P lasma 156 U/L 73-393 Normal (applies to non-numeric results) [facility] ([facility] Thyrotropin [Units/volume] in Serum or Plasma 2.680 uIU/ML 0. 358-3.740 Normal (applies to non-numeric results) [facility] Thyroxine (T4) free [Mass/volume] in Serum or Plasma 0.97 ng/dL 0.76-1.46 Normal (applies to non-numeric results) [facility] C reactive protein [Mass/volume] in Serum or Plasma by High sensitivity method 0.30 mg/dL 0.00-0.30 Normal (applies to non-numeric results) [facility] ([facility] ID Date Data Source [id number] 05/15/2020 06:36:00 AM EST [facility] ([facility] Name Value Range Interpretation Code Description Data Carey rce(s) Supporting Document(s) Glucose, Fasting 93 mg/dL 70-100 Normal (applies to non-numeric results) [facility] ([facility] [facility] Blood Urea Nitrogen 17 mg/dL 7-18 Normal (applies to non-nume rajat results) [facility] ([facility] Creatinine For GFR 0.89 mg/dL 0.70-1.30 Normal (applies to non -numeric results) [facility] ([facility] Glomerular Filtration Rate Laboratory test result Normal (applies to non- numeric results) [facility] ([facility] ) <content>Units are mL/min/1.73 m2</content>
<content></content>
<content>Chronic Kidney Disease Staging per NKF:</content>
<content></content>
<content>Stage I & II GFR >=60 Normal to Mildly Decreased</content>
<content>Stage III GFR 30- 59 Moderately Decreased</content>
<content>Stage IV GFR 15-29 Severely Decreased</content>
<content>Stage V GFR <15 Very Little GFR Left</content>
<content>ESRD GFR <15 on DISCHARGE SPECIALIST</content>
<content></content> Chloride Level 106 meq/L 98-107 Normal (applies to non-numeric r esults) [facility] ([facility] Potassium Serum 4.6 meq/L 3.5-5.1 Normal (applies to non-numeric results) [facility] ([facility] Sodium Level 137 meq/L 136-145 Normal (applies to non-numeric res ults) [facility] ([facility] Calcium Level 9.4 mg/dL 8.5-10.1 Normal (applies to non-numeric re sults) [facility] ([facility] Carbon Dioxide Level 26 meq/L 21-32 Normal (applies to non-num daniel results) [facility] ([facility] Anion Gap 5 meq/L 8-16 Below low normal [facility] ID Date Data Source [id number] 05/15/2020 06:36:00 AM EST [facility] ([facility] Name Value Range Interpretation Code Description Data Carey rce(s) Supporting Document(s) Alkaline Phosphatase 87 U/L 45-117 Normal (applies to non-num daniel results) [facility] ([facility] Alt/SGPT 43 U/L 12-78 Normal (applies to non-numeric resul ts) [facility] ([facility] Ast/Sgot 28 U/L 7-37 Normal (applies to non-numeric resul ts) [facility] ([facility] Bilirubin,Total 0.5 mg/dL 0.2-1.0 Normal (applies to non-numeric results) [facility] ([facility] Total Protein 7.3 GM/DL 6.4-8.2 Normal (applies to non-numeric re sults) [facility] ([facility] Bilirubin,Direct Laboratory test result 0.0-0.2 Normal ( applies to non-numeric results) [facility] ([facility] ) Albumin 3.7 GM/DL 3.2-5.2 Normal (applies to non-numeric resul ts) [facility] ([facility] Albumin/Globulin Ratio 1.0 Normal (applies to non-n umeric results) [facility] ([facility] ID Date Data Source [id number] 05/15/2020 06:36:00 AM EST [facility] Name Value Range Interpretation Code Description Data Carey rce(s) Supporting Document(s) CPK Creatine Phosphokinase 140 U/L 39-308 Prabha l (applies to non-numeric results) [facility] ([facility] ) CK-MB Value Mass Laboratory test result Normal ( applies to non-numeric results) [facility] ([facility] ) Troponin I Laboratory test result Normal (applies to non-n umeric results) [facility] ([facility] <content>Troponin I Reference Interval f or [employer] LOCI:</content>
<content></content>
<content>99th Percentile= 0.00-0.045 ng/ml</content>
<content></content>
<content>Risk Stratification:</content>
<content><= 0.10 ng/ml Decreased Risk for Adverse Clinical</content>
<content>Events.</content>
<content>0.10-1.50 ng/ml Increased Risk for Adverse Clinical</content>
<content>Events. Evaluation of additional</content>
<content>criterion and/or repeat testing in 2-6</content>
<content>hours is suggested to rule out myocardial</content>
<content>damage.</content>
<content>>= 1.50 ng/ml Indicative of Myocardial Injury.</content>
<content></content> MB/CK Relative Index 0.71 Normal (applies to non-num daniel results) [facility] ([facility] <content>DIAGNOSIS CRITERIA</content>
<content>MMB ng/ml Relative Index (RI)</content>
<content>NON-AMI < or = 5 N/A</content>
<content>SHANNON ZONE > 5 < or = 4</content>
<content>AMI > 5 > 4</content>
<content></content> Procedure Social History Code Duration Value Status Description Data Source(s ) Smoking 04/10/2021 12:00:00 AM EDT Patient has never smoked co mpleted Patient has never smoked [facility] ([facility]) Smoking 08/10/2020 12:00:00 AM EST Former smoker completed Former smoker [facility] Vital Signs ID Date Data Source UNK Name Value Range Interpretation Code Description Data Source(s) Body mass index (BMI) [Ratio] 27.5 kg/m2 27.5 k g/m2 [facility]) Systolic blood pressure 131 mm[Hg] 131 mm[Hg] [facility]) Diastolic blood pressure 87 mm[Hg] 87 mm[Hg] [facility], [facility]) Heart rate 73 /min 73 /min [facility] ([facility], [facility]) Respiratory rate 16 /min 16 /min [facility] ( [facility], [facility]) Oxygen saturation in Arterial blood by Pulse oximetry 96 % 96 % [facility] ([facility], [facility]) Body temperature 98.0 [degF] 98.0 [degF] [facility] ([facility]) Body weight 186.00 [lb_av] 186.00 [lb_av] [facility] ([facility]) Body height 69 [in_i] 69 [in_i] [facility] ([facility]) 5'9" Systolic blood pressure 128 mm[Hg] 128 mm[Hg] M [facility] ([facility]) Diastolic blood pressure 82 mm[Hg] 82 mm[Hg] [facility] ([facility]) Body height 69 [in_i] 69 [in_i] [facility] ([facility]) 5'9" Body weight 191.00 [lb_av] 191.00 [lb_av] [facility] ([facility]) Body mass index (BMI) [Ratio] 28.2 kg/m2 28.2 k g/m2 [facility] ([facility]) [place] body weight 160 [lb_av] 160 [lb_av] [facility] ([facility]) Body weight 86.638 kg 86.638 kg [facility] ([facility]) Body surface area Derived from formula 2.03 m2 2.03 m2 [facility] ([facility]) Body height 69 [in_i] 69 [in_i] [facility] ([facility]) 5'9" Body weight 191.00 [lb_av] 191.00 [lb_av] [facility] ([facility]) Body mass index (BMI) [Ratio] 28.2 kg/m2 28.2 k g/m2 [facility] ([facility]) [place] body weight 160 [lb_av] 160 [lb_av] [facility] ([facility]) Body weight 86.638 kg 86.638 kg [facility] ([facility]) Body surface area Derived from formula 2.03 m2 2.03 m2 [facility] ([facility]) Systolic blood pressure 128 mm[Hg] 128 mm[Hg] M [facility] ([facility]) Diastolic blood pressure 82 mm[Hg] 82 mm[Hg] [facility] ([facility] ) Systolic blood pressure 136 mm[Hg] 136 mm[Hg] M [facility] ([facility] Diastolic blood pressure 88 mm[Hg] 88 mm[Hg] [facility] ([facility] Heart rate 80 /min 80 /min [facility] ([facility] Respiratory rate 14 /min 14 /min [facility] ( [facility] Body weight 194.00 [lb_av] 194.00 [lb_av] [facility] ([facility] Body weight 90.266 kg 90.266 kg [facility] Systolic blood pressure 116 mm[Hg] 116 mm[Hg] [facility] Diastolic blood pressure 80 mm[Hg] 80 mm[Hg] [facility] Heart rate 68 /min 68 /min [facility] Respiratory rate 16 /min 16 /min [facility] Body height 175.3 cm 175.3 cm [facility] Body mass index (BMI) [Ratio] 29.39 kg/m2 29.39 kg/m2 [facility] Systolic blood pressure 110 mm[Hg] 110 mm[Hg] [facility] ([facility] Diastolic blood pressure 70 mm[Hg] 70 mm[Hg] [facility] ([facility] Heart rate 70 /min 70 /min [facility] ([facility] Respiratory rate 14 /min 14 /min [facility] ( [facility] Body weight 197.00 [lb_av] 197.00 [lb_av] [facility] ([facility]
[2021-04-11 09:03] LABS: ALBUMIN 4.2 GM/DL (3.2-5.2); ALT/SGPT 39 U/L (12-78); BILIRUBIN,DIRECT 0.1 MG/DL (0.0-0.2); BILIRUBIN,TOTAL 0.5 MG/DL (0.2-1.0); BLOOD UREA NITROGEN 14 MG/DL (7-18); CALCIUM LEVEL 9.9 MG/DL (8.5-10.1); CARBON DIOXIDE LEVEL 29 MEQ/L (21-32); CHLORIDE LEVEL 102 MEQ/L (98-107); CREATININE FOR GFR 1.02 MG/DL (0.70-1.30); GLOMERULAR FILTRATION RATE > 60.0 (>60); GLUCOSE, FASTING 96 MG/DL (70-100); LIPASE 115 U/L (73-393); MAGNESIUM LEVEL 2.1 MG/DL (1.8-2.4); NT-PRO BNP < 5 PG/ML (<125); POTASSIUM SERUM 3.8 MEQ/L (3.5-5.1); SODIUM LEVEL 138 MEQ/L (136-145); T UPTAKE 36 % (33-40); THYROXINE (T4) 10.5 UG/DL (4.5-12.0); TOTAL PROTEIN 8.1 GM/DL (6.4-8.2)
[2021-04-11] MEDS ORDERED: ISOVUE-370 76% 100ML VIAL As Ordered ONE (09:13)
--- NOTE | 2021-04-11 09:57 | REP ---
INDICATION: sob COMPARISON: None. TECHNIQUE: CT angiography of the chest attention pulmonary arteries after the intravenous administration of 75 cc Isovue 370. FINDINGS: There is excellent visualization of the pulmonary arterial vasculature. No focal filling defects are present that would be considered consistent with acute pulmonary emboli. There is no mediastinal or hilar adenopathy. There are no pleural or pericardial effusions. The imaged upper abdomen and imaged osseous structures are within normal limits. Evaluation of the lung oliver shows no abnormal nodules, masses, or opacities. IMPRESSION: CT findings are within normal limits. <Electronically signed by Jero Chen > 04/11/21 [id number]
--- NOTE | 2021-04-11 18:23 | ECGEPIP ---
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
== END 2021-04-11 10:45 | disposition home or self-care (01) ==
LOC: M ED 07:42
DX: R00.2 Palpitations (principal); R00.1 Bradycardia, unspecified; I45.19 Other right bundle-branch block; Z87.891 Personal history of nicotine dependence; Z88.8 Allergy status to other drugs, medicaments and biological substances; Z79.899 Other long term (current) drug therapy
CPT/HCPCS: 36415; 71045; 71275; 80048; 80076; 83690; 83735; 83880; 84436; 84443; 84479; 85025; 93005; 93041; 94760; 99284; Q9967

== ENCOUNTER → 2021-05-04 | Outpatient (CLI) | payer OTHER | LOC: M LABSMTC 10:07 | PROVIDERS: ATTEND Anesthesiology | DX: Z01.818 Encounter for other preprocedural examination (principal); Z11.52 Encounter for screening for COVID-19 ==

== ENCOUNTER 2023-09-23 07:42 | Emergency (ER) | payer OTHER ==
[~2023-09-23] VITALS: Ht 175.3 cm; Wt 90.0 kg
[2023-09-23] MEDS ORDERED: IRISH SEA MOSS PO (08:00)
[2023-09-23] MEDS ORDERED: HOME MED LIST COMPLETE! XX SCH (09:50)
[2023-09-23 10:29] LABS: BASO # 0.1 10^3/uL (0.0-0.2); BASO % 0.9 % (0.0-1.0); EOS # 0.1 10^3/uL (0.0-0.5); EOS % 1.7 % (0.0-3.0); HEMATOCRIT 46.6 % (42.0-52.0); HEMOGLOBIN 16.3 g/dl (13.5-17.5); LYMPH # 1.7 10^3/uL (1.5-5.0); LYMPH % 32.3 % (24.0-44.0); MEAN CORPUSCULAR HEMOGLOBIN 28.7 pg (27.0-33.0); MONO # 0.3 10^3/uL (0.0-0.8); MONO % 5.9 % (2.0-8.0); NEUTROPHILS # 3.1 10^3/uL (1.5-8.5); PLATELET COUNT, AUTOMATED 274 10^3/uL (150-450); RED BLOOD COUNT 5.68 10^6/uL (4.30-6.10); WHITE BLOOD COUNT 5.3 10^3/uL (4.0-10.0)
[2023-09-23 10:54] LABS: BLOOD UREA NITROGEN 19 MG/DL (9-23); CALCIUM LEVEL 9.3 MG/DL (8.5-10.1); CARBON DIOXIDE LEVEL 25 MMOL/L (20-31); CHLORIDE LEVEL 103 MMOL/L (98-107); CK-MB VALUE MASS < 1.0 NG/ML (<3.6); CREATININE FOR GFR 0.87 MG/DL (0.70-1.30); GLOMERULAR FILTRATION RATE > 60.0 (>60); GLUCOSE, FASTING 102 MG/DL (60-100); POTASSIUM SERUM 4.4 MMOL/L (3.5-5.1); SODIUM LEVEL 136 MMOL/L (136-145)
[2023-09-23 10:56] LABS: THYROID STIMULATING HORMONE 1.391 uIU/ML (0.55-4.78)
[2023-09-23 10:57] LABS: FREE T4 1.11 NG/DL (0.89-1.76)
[2023-09-23 10:59] LABS: CPK CREATINE PHOSPHOKINASE 117 U/L (46-171); MB/CK RELATIVE INDEX 0.85 (< OR =4)
[2023-09-23 11:43] VITALS: BP 115/79; TEMP 97.4; O2SAT 96
== END 2023-09-23 11:45 | disposition home or self-care (01) ==
LOC: M ED 07:42
DX: R07.9 Chest pain, unspecified (principal); K21.9 Gastro-esophageal reflux disease without esophagitis; I49.1 Atrial premature depolarization; R00.1 Bradycardia, unspecified; Z88.5 Allergy status to narcotic agent; Z79.899 Other long term (current) drug therapy